=== PATIENT | female | born 1960 | race Caucasian/White ===

== ENCOUNTER 2019-01-03 18:59 | Inpatient (IN) | payer BC, OTHER ==
[~2019-01-03 18:59] MED LIST: ISOVUE-370 76%-LOCM 1 ML ONE
--- NOTE | 2019-01-03 21:23 | CT ---
CTA Angio Chest W WO Con History: Dyspnea Comparison: None. Findings: There is complete opacification of the left hemithorax lung parenchyma which is collapsed d ue to the large left effusion. There is rightward mediastinal shift due to large effusion. Left mastectomy changes and right mastectomy changes. Severe thickening of the left hemithorax skin. There is an area of fat necrosis of left axilla. Surgical clips left axilla. There is atrophy of the left latissimus musculature. Abnormal AP window lymph node measures 1.4 cm in size. The sternum and manubrium are intact. There is a cavitation in the right middle lobe containing a central calcification. Impression: 1. Very large left pleural effusion causing complete left lung collapse. 2. Evidence of bilateral mastectomy changes with left hemithorax skin thickening likely sequela of in flammatory breast cancer. 3. Mild rightward mediastinal shift due to the left hemithorax effusion. 4. Abnormal AP window lymph nodes concerning for metastatic disease.
[2019-01-04] MEDS ORDERED: Morphine 2 MG/ML SYRINGE SLOW IVP PRN (00:28)
[2019-01-04] MEDS ORDERED: Morphine 4 MG/ML VIAL SLOW IVP PRN (00:29)
[2019-01-04] MEDS ORDERED: Ondansetron PF 4 MG/2 ML Vial IVP PRN (00:29)
[2019-01-04] MEDS ORDERED: Sodium Chloride 0.9% 1,000 ML IV SCH (00:30)
[2019-01-04 01:00] VITALS: BP 161/101
[2019-01-04] MEDS: Acetaminophen 325 MG TAB PO PRN ×2 (01:41→08:40)
[2019-01-04 03:04] VITALS: BMI 40.7
--- NOTE | 2019-01-04 05:11 | HP ---
PRIMARY CARE DOCTOR: CODE STATUS: Full code. TIME OF EVALUATION: 11:20 p.m. CHIEF COMPLAINT: Shortness of breath. HISTORY OF PRESENT ILLNESS: This is a 58-year-old female patient with past medical history of breast cancer. She was diagnosed in May. The patient has gone through chemo, surgery, and radiation. Last radiation was today. The patient came to the hospital after having severe gradually worsening shortness of breath and generalized weakness. The symptoms have been present for the past week and has got to the point that her shortness of breath got very severe with no clear triggers. No alleviating factors. The patient is unable to do her activities of daily living due to symptoms. REVIEW OF SYSTEMS: CONSTITUTIONAL: No fever, chills, or generalized weakness. RESPIRATORY: The patient has cough. No sputum production. The patient has shortness of breath. CARDIOVASCULAR: No chest pain or palpitation. GASTROINTESTINAL: No nausea, vomiting, diarrhea, or abdominal pain. COMMERCIAL SINGER: No dizziness, headache, or feeling lightheaded. GENITOURINARY: No burning on urination. EXTREMITIES: No leg swelling. All other systems were reviewed and negative except for the findings mentioned above. PAST MEDICAL HISTORY: Positive for breast cancer and hypertension. The patient is currently on chemo and radiation. PAST SURGICAL HISTORY: Knee surgery, radical mastectomy, uterine ablation, and MediPort right chest. PSYCHIATRIC HISTORY: No previous psych history. FAMILY HISTORY: Reviewed and non contributory to current presentation. SOCIAL HISTORY: The patient drinks socially. No drug use. No smoking history. KNOWN ALLERGIES: Penicillin, sulfa, and Zithromax. REPORTED MEDICATIONS: . PHYSICAL EXAMINATION: VITAL SIGNS: On presentation; blood pressure 158/99 with heart rate 99, respiratory rate was 20, temperature 98.7, pain was 1/10, and oxygen saturation was 93% on room air. GENERAL APPEARANCE: The patient is alert and oriented. HEENT: Eyes, normal conjunctiva. ENT, moist oral mucosa. Anicteric. No JVD. RESPIRATORY: Bilateral air entry. The patient has left-sided decreased sounds. No rales. No wheezes. Symmetric expansion. CARDIOVASCULAR: Normal rate. Regular rhythm. No murmurs. No gallop. No edema. ABDOMEN: Soft. Normal bowel sounds. MUSCULOSKELETAL: Baseline range of motion and strength. SKIN: Warm and intact. No pallor. No rash. No redness. Capillary refill seems to be intact. NEURO: No evidence of any new focal weakness. Cranial nerves seems to be intact. PSYCH: The patient is in good mood. No anxiety. Optimal judgment. IMAGING STUDIES: Chest CTA was done. The patient has very large pleural effusion causing complete left lung collapse, areas of bilateral mastectomy, changes with left hemithorax thickening, likely sequela of inflammatory breast cancer, mild rightward mediastinal shift due to the left hemithorax effusion. Normal AP window, lymph nodes concerning for metastatic disease. LABORATORY DATA: Reviewed. The patient has white count that is difficult to see, could be 0.4 or 9.4, the copy is not good. The hemoglobin is 13.2. There is no anemia. PT/INR were good. Sodium 132, potassium 3.6, chloride 100, carbon dioxide 22, anion gap 10, glucose 105, BUN 12, creatinine 0.6, GFR 96, calcium 9.2, CK 37, and troponin was negative. ASSESSMENT AND PLAN: The patient will be placed in the hospital with following medical problems: 1. Large left-sided pleural effusion with total lung collapse on the left side. The right side seems to be compensating. The patient is little bit hypoxic but is resolving on 2 L nasal cannula. Otherwise, the patient is stable. Consulted Dr. Arias. 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 The patient will need a therapeutic tap. We will follow with Dr. Arias's recommendations. 2. Acute hypoxic respiratory failure. The patient came with difficulty sustaining saturation above 90. The patient is in nasal cannula with underlying condition. 3. History of breast cancer that is metastatic and likely causing the pleural effusion. The patient will need to be followed up as outpatient once inpatient treatment is done. 4. Deep venous thrombosis prophylaxis. 5. Uncontrolled hypertension, systolic blood pressure 150, diastolic 99. Reconcile home medications, adjust treatment as needed. Job ID: [id number] MTDD
[2019-01-04 12:09] LABS: Pleural Fluid, Protein 3.5 g/dL
[2019-01-04 13:16] LABS: BF Color Yellow; Body Fluid Source Thoracentesis Fluid; Clarity Hazy (Clear)
[2019-01-04 13:17] LABS: Tube # EDTA; WBC/NonHematic-Auto 314 /cumm
[2019-01-04 13:19] LABS: BF RBC Count - Manual 3900 /cumm
[2019-01-04 13:29] LABS: BF Segmented Neutrophils 13 %; Cell Count Non Hematic 58 %; Lymphocytes 29 %
[2019-01-04 15:25] VITALS: TEMP 97.2
--- NOTE | 2019-01-04 15:49 | CON ---
DATE OF CONSULTATION: 01/04/2019 SERVICE: Pulmonary Medicine. REASON FOR CONSULT: Pleural effusion. HISTORY OF PRESENT ILLNESS: The patient is a very pleasant 58-year-old white female with past medical history significant for breast cancer. She was in her usual state of health until 10 days ago when she started having increasing shortness of breath. She got to the point where she had dyspnea with exertion, and even dyspnea at rest. She presented to the emergency department, where there was a large pleural effusion present. There was a CTA that was done. There was no endobronchial disease identified. That being said, she had had complete atelectasis of the left lung field. I was consulted for investigation. PAST MEDICAL HISTORY: 1. Breast cancer. 2. Hypertension. PAST SURGICAL HISTORY: 1. Left-sided radical mastectomy. 2. Right-sided mastectomy. 3. Port catheter placement. 4. Uterine ablation. 5. Knee surgery. SOCIAL HISTORY: She has no exposure to tobacco, alcohol, or illicit drugs. She has no exposure to chemicals, dust, asbestos, or tuberculosis. FAMILY HISTORY: Noncontributory. ALLERGIES: PENICILLIN, SULFA, AND ZITHROMAX. MEDICATIONS: List of her inpatient medications was reviewed. No specific updates were made at this time. REVIEW OF SYSTEMS: General; head, ears, eyes, nose, and throat; cardiovascular; respiratory; GI; ; musculoskeletal; neurologic; and skin is negative except as mentioned in the HPI. PHYSICAL EXAMINATION: VITAL SIGNS: Afebrile, pulse 82, blood pressure 128/92, respirations 13, and saturation 97% on 2L nasal cannula. GENERAL: The patient is awake and alert, in no apparent distress. LUNGS: Very good air entry on the right. There is no prolonged expiratory phase or wheezing. There is no air entry on the left. HEART: Normal rate, regular. ABDOMEN: Soft, nontender, and nondistended. Bowel sounds are positive. MUSCULOSKELETAL: No cyanosis or clubbing. There is trace pitting in bilateral lower extremities. NEUROLOGIC: Grossly nonfocal. IMAGING STUDIES: CT of the chest demonstrates no evidence of a pulmonary embolism. There is a very large left-sided pleural effusion with complete atelectasis of the upper and lower lobes. There is no evidence of endobronchial disease in left mainstem bronchus. In fact, I can clearly delineate the left upper lobe and left lower lobe bronchus. There is a cavitary lesion in the right middle lobe. No pulmonary embolism is present. LABORATORY DATA: CBC is essentially unremarkable. There is no significant electrolyte abnormalities and her creatinine is 0.6. CK is low. Troponin is negative. ASSESSMENT: 1. Breast cancer, metastatic. 2. Left-sided pleural effusion, large. 3. Acute hypoxic respiratory failure. DISCUSSION AND PLAN: We will move forward with a thoracentesis for diagnostic and therapeutic purposes. The patient's oxygen can be weaned away. If she tolerates this well, she can be considered for transition home today. If she remains on oxygen, we may need to keep her in the hospital to set this up in the outpatient setting. Pulmonary/Critical Care will continue to follow along. If she is discharged from the hospital, I will see her back on Sunday or of next week to review the cytology and other laboratories. If this is a malignant effusion, she will be a good candidate for a PleurX catheter. 70 minutes have been devoted to this patient in various activities. I personally reviewed all imaging studies and laboratory data noted within this document. For fifty percent of this time, I was interacting with the patient at the bedside or coordinating care with the care team. For the remainder of the time I was immediately available to the patient in the hospital unit. Job ID: [id number] MTDD
--- NOTE | 2019-01-04 22:03 | OP ---
DATE OF PROCEDURE: 01/04/2019 SERVICE: Pulmonary Medicine. PROCEDURE PERFORMED: Left-sided thoracentesis with ultrasound guidance. CONSENT: Risks and benefits of the procedure were explained to the patient at bedside. All questions were answered and alternative options explained. MEDICATIONS USED: Lidocaine 1% without epinephrine, total quantity 10 mL. PREOPERATIVE DIAGNOSES: 1. Acute hypoxic respiratory failure. 2. Pleural effusion. POSTPROCEDURE DIAGNOSES: 1. Acute hypoxic respiratory failure. 2. Pleural effusion. DESCRIPTION OF PROCEDURE: A time-out was performed by the procedure team and patient. The patient was positively identified using name and date of . The procedure site was marked. Vital sign monitoring was accomplished by noninvasive hemodynamic monitoring, pulse oximetry, and telemetry. In the seated position, left posterior hemothorax was examined using ultrasound probe. The diaphragm and pleural fluid were easily identified. The skin was prepped and draped in sterile fashion and anesthetized with 1% lidocaine without epinephrine. A finder needle was inserted in the pleural space with return of cloudy rod pleural fluid. A pleural drainage catheter was inserted in the same location, and a total quantity of 1800 mL of the pleural fluid was withdrawn by syringe pump technique. A sample was sent for analysis. Evacuation was terminated because the patient had a heaviness in the chest, and an odd sensation in the neck. The heaviness in the chest immediately resolved when I stopped flowing fluid. The odd sensation in the neck/throat persisted temporarily. At the end of the procedure, estimated pleural pressures, measured by manometry, was -15 cm of pleural fluid. The intact catheter was withdrawn on exhalation and a sterile dressing was applied. The patient had stable vitals throughout the procedure. Postprocedure ultrasound demonstrated that the patient likely still had 1.5 L in her chest. ESTIMATED BLOOD LOSS: None. COMPLICATIONS: None. Job ID: [id number]
--- NOTE | 2019-01-08 08:33 | PQF ---
[employer] Crystal Reports Winform ViewerKEELY COLE PRASANNA CARRILLO [id number] [facility]- B03 [id number] CLINICAL DOCUMENTATION CLARIFICATION FORM: POST DISCHARGE Addendum to original discharge summary date: ____ Late entry note date: __ DATE: 01/08/2019 ATTN: JERONIMO DECKER Please exercise your independent, professional judgment in responding to the clarification form. Clinical indicators are provided on the bottom of this form for your review ___ Final Diagnosis on the Pathology report: ___ Progress Notes indicate: Clarification of Pathology report: Please check appropriate box(s): [ ] Agree w the pathology finding of: [ ] Other explanation of pathology findings (please specify) [ ] Other diagnosis [ ] Unable to determine For continuity of documentation, please document condition throughout progress notes and discharge summary. Thank You. CLINICAL INDICATORS - SIGNS/ SYMPTOMS / LABS Pleural fluid-Positive for malignancy, consistent with adenocarcinoma-PTH report 01/07 Lyndon Rueda MD Pleural effusion-OP report 01/04 Juana Khan MD Breast cancer, metastatic. 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 Crystal Reports Winform Viewer Large left-sided pleural effusion -Consultation, 01/04 Juana Khan MD TREATMENTS Left-sided thoracentesis with Ultrasound guidance-OP report, 01/04 Juana Khan MD (This form is maintained as a part of the permanent medical record) 2014 [employer]. All Rights Reserved Karen Mason [not provided] [not provided] MTDD
== END 2019-01-04 15:36 | disposition home or self-care (01) | DRG 597 ==
LOC: ERS 18:59 → IMCU/EMU 21:39
PROVIDERS: ADMIT Hospitalist; ATTEND Hospitalist
PROC: 0W9B3ZZ Drainage of Left Pleural Cavity, Percutaneous Approach (ICD-10-PCS; principal; 2019-01-04)
PROC: BB4BZZZ Ultrasonography of Pleura (ICD-10-PCS; 2019-01-04)
DX: C50.919 Malignant neoplasm of unspecified site of unspecified female breast (principal); J96.01 Acute respiratory failure with hypoxia; J91.0 Malignant pleural effusion; I10 Essential (primary) hypertension; Z90.13 Acquired absence of bilateral breasts and nipples; Z88.1 Allergy status to other antibiotic agents; Z88.0 Allergy status to penicillin; Z88.2 Allergy status to sulfonamides
CPT/HCPCS: 71275; 82150; 82945; 83615; 83986; 84157; 84478; 85060; 87070; 87116; 87205; 87206; 88112; 88305; 89051; Q9966

== ENCOUNTER 2019-01-09 09:45 | Outpatient (CLI) | payer OTHER ==
--- NOTE | 2019-01-09 09:58 | RAD ---
EXAM: Chest 2 views: HISTORY: Dyspnea and pleural effusion. Cancer patient COMPARISON: CTA chest 01/03/2019 FINDINGS: There is a normal-sized cardiomediastinal silhouette. A right IJ Mediport is seen with its tip in th e superior vena cava. There is complete opacification of the left thorax which likely represents a combination of a large pleural effusion and adjacent atelectasis of the left lung. The bones are unr emarkable. IMPRESSION: Left hemithoracic opacification
== END 2019-01-09 09:46 | disposition home or self-care (01) ==
LOC: RAD 09:45
PROVIDERS: ATTEND Internal Medicine
DX: R06.00 Dyspnea, unspecified (principal); R91.8 Other nonspecific abnormal finding of lung field
CPT/HCPCS: 71046

== ENCOUNTER 2019-01-10 07:47 | Day surgery (SDC) | payer OTHER ==
[2019-01-09 17:16] VITALS: BMI 40.3
[2019-01-10] MEDS ORDERED: Lidocaine 1% (PF) 30 ML VIAL ONE (08:56)
[2019-01-10 08:59] LABS: Hemoglobin 12.9 g/dL (12.0-16.0); Mean Corpuscular HGB CONC 31.9 g/dL (32.0-36.0); Mean Corpuscular Hemoglobin 26.8 pg (27.0-31.0); Mean Corpuscular Volume 84.2 fL (78.0-98.0); Mean Platelet Volume 7.3 fL (7.4-10.4); Platelet Count 364 thou/uL (130-400); RBC Distribution Width 15.3 % (11.5-14.5); White Blood Cell (WBC) Count 11.4 thou/uL (4.8-10.8)
[2019-01-10] MEDS ORDERED: Levofloxacin 500 mg/D5W 100 ml Premix Bag ONE (09:00)
[2019-01-10 09:16] LABS: Anion Gap 17 mmol/L (10-20); BUN (Urea Nitrogen) 10 mg/dL (9.8-20.1); Calc. Creatinine Clearance 176 mL/min (70-130); Calcium 9.2 mg/dL (7.8-10.44); Carbon Dioxide 25 mmol/L (22-29); Chloride 101 mmol/L (98-107); Estimated GFR-MDRD Greater than 90; Glucose 134 mg/dL (70-105); Potassium 4.1 mmol/L (3.5-5.1); Sodium 139 mmol/L (136-145)
[2019-01-10] MEDS ORDERED: Midazolam HCl 2 mg/2 ml Vial ONE (09:29)
[2019-01-10] MEDS ORDERED: Fentanyl 100 MCG/2 ML VIAL ONE (09:29)
[2019-01-10] MEDS ORDERED: Bupivacaine/Epinephrine 0.25% 30 ML VIAL ONE (09:46)
--- NOTE | 2019-01-10 10:41 | RAD ---
SINGLE VIEW CHEST: Date: 01/10/19 COMPARISON: 01/09/19. HISTORY: PleurX catheter placement. FINDINGS: Single view of chest shows complete opacification of the left thorax, except for a small area of air space opacity in the mid portion of the thorax. A catheter is seen in this location, which likely rep resents the patient's PleurX catheter. No shift of mediastinum is seen. There is a MediPort unchanged in position. IMPRESSION: Status post chest tube placement without evidence of complication. POS: CET
[2019-01-10] MEDS ORDERED: Sodium Chloride 0.9% 10 ML ONE (11:01)
--- NOTE | 2019-01-10 12:14 | OP ---
DATE OF PROCEDURE: 01/10/2019 PREOPERATIVE DIAGNOSIS: Malignant left pleural effusion. POSTOPERATIVE DIAGNOSIS: Malignant left pleural effusion. PROCEDURE PERFORMED: Left PleurX catheter. ANESTHESIA: Local with IV sedation. DESCRIPTION OF PROCEDURE: After the patient had been placed in the slight right lateral decubitus position, she was prepped and draped and received antibiotics. Lidocaine was used to infiltrate along the mid to posterior axillary line inferiorly lower breast. Unfortunately, I was unable to palpate her ribs due to her size and a needle was then placed with the catheter and rib was encountered with initial pass and it was then repositioned and passed slightly superiorly, trying to stay on the superior surface of that rib. Old bloody fluid was immediately obtained and a wire was then used to pass through this catheter. The catheter was then removed. Exit site for the catheter was then chosen. Incision made after lidocaine and Marcaine infiltration, and the catheter was then brought through the tunnel and felt cuff immediately adjacent to the exit site. Peel-away sheath was then introduced and the catheter was placed, ensuring it had a nice gentle curve. 3 L of bloody fluid was then removed, plus about a 100 that had spilled during placement of the catheter. Following this, skin was closed over the entry site of the catheter and then dressings were applied. The patient tolerated the procedure well. Job ID: [id number]
== END 2019-01-10 11:20 | disposition home or self-care (01) ==
LOC: SDC 07:47
PROVIDERS: ATTEND Thoracic Surgery (Cardiothoracic Vascular Surgery)
PROC: 0B9P30Z Drainage of Left Pleura with Drainage Device, Percutaneous Approach (ICD-10-PCS; principal; 2019-01-10)
DX: C50.919 Malignant neoplasm of unspecified site of unspecified female breast (principal); J91.0 Malignant pleural effusion; I10 Essential (primary) hypertension; Z88.0 Allergy status to penicillin; Z88.1 Allergy status to other antibiotic agents; Z88.2 Allergy status to sulfonamides; Z91.048 Other nonmedicinal substance allergy status
CPT/HCPCS: 36415; 71045; 80048; 85027; C1729; J1642; J1956; J2001; J2250; J3010

== ENCOUNTER 2019-01-31 08:38 | Outpatient (CLI) | payer OTHER ==
--- NOTE | 2019-01-31 11:11 | PET ---
Exam: PET CT skull to mid thigh COMPARISON: CTA thorax 01/04/2019 is referenced HISTORY: Malignant neoplasm of lower outer quadrant of left female breast; carcinoma central portion of left female breast TECHNIQUE: A PET/CT was performed from the skull to the mid thigh after administration of 12.5 millic uries of F-18 FDG. Evaluation was performed on a [employer] workstation. FINDINGS: NECK: There is increased metabolic activity at the left base of neck, with SUV measuring borderline a t 2.5, and correlating with CT imaging, this location does reveal multiple borderline size lymph nodes. CHEST: There is extensive pleural and parenchymal disease of the left hemithorax with an indwelling l eft pleural catheter. There is hypermetabolic activity, of the left medial hemithorax, localizing to pulmonary parenchymal disease, with SUV maximum of approximately 2.7, and in addition there are pr ominent prevascular lymph nodes reveal hypermetabolic activity of approximately 2.9. There is multifocal increased metabolic activity involving soft tissue and musculature of the bilateral chest wall both anteriorly and posteriorly, with prominent soft tissue edema traversing the anterior chest, left greater than right, and along the left lateral and posterior chest wall. There is focal h ypermetabolic activity of this region, the most pronounced of which localizes to the lateral confines of the left pectoralis musculature with SUV of approximately 4.5, within the presternal musc ulature, SUV approximately 3.5, and within the right breast soft tissues, SUV approximately 3.6. Postoperative ovoid mixed density collection is seen at the left anterolateral chest and is not intri nsically hypermetabolic. ABDOMEN/PELVIS: Scattered soft tissue edema of the abdomen and pelvis. No hypermetabolic lesions. SKELETON: No areas of hypermetabolic activity IMPRESSION: Multifocal hypermetabolic activity of the neck and chest, as above, predominance of which does appear to reflect inflammatory process, given diffuse distribution and associated edema. There are hypermetabolic lymph nodes of the left neck and left chest that may reflect reactive adenop athy, although the possibility of underlying malignancy is not excluded. Extensive pleural and parenchymal disease of the left chest. Recommend continued imaging follow-up for ongoing assessment.
== END 2019-01-31 08:39 | disposition home or self-care (01) ==
LOC: PET 08:38
DX: C50.512 Malignant neoplasm of lower-outer quadrant of left female breast (principal); C50.112 Malignant neoplasm of central portion of left female breast; J98.4 Other disorders of lung
CPT/HCPCS: 78815; A9552

== ENCOUNTER 2019-03-19 13:38 | Outpatient (CLI) | payer OTHER ==
--- NOTE | 2019-03-19 13:53 | RAD ---
EXAM: Chest 2 views: HISTORY: Malignant pleural effusion COMPARISON: 01/09/2019 FINDINGS: There is a normal-sized cardiomediastinal silhouette. The Mediport is unchanged in position. There i s stable complete opacification of the left thorax. The bones are unremarkable. IMPRESSION: Stable left thoracic opacification
== END 2019-03-19 13:39 | disposition home or self-care (01) ==
LOC: RAD 13:38
PROVIDERS: ATTEND Thoracic Surgery (Cardiothoracic Vascular Surgery)
DX: J91.0 Malignant pleural effusion (principal)
CPT/HCPCS: 71046

== ENCOUNTER 2019-03-24 17:04 | Inpatient (IN) | payer OTHER ==
[2019-03-24 17:42] LABS: Hemoglobin 9.9 g/dL (12.0-16.0); Mean Corpuscular HGB CONC 31.6 g/dL (32.0-36.0); Mean Corpuscular Hemoglobin 25.3 pg (27.0-31.0); Mean Corpuscular Volume 80.1 fL (78.0-98.0); Mean Platelet Volume 7.2 fL (7.4-10.4); Platelet Count 631 thou/uL (130-400); RBC Distribution Width 18.6 % (11.5-14.5); Red Blood Cell (RBC) Count 3.93 mill/uL (4.20-5.40); White Blood Cell (WBC) Count 17.3 thou/uL (4.8-10.8)
--- NOTE | 2019-03-24 17:46 | RAD ---
RADIOGRAPH CHEST 1 VIEW: DATE: 03/24/2019 TIME: 5:38 PM HISTORY: 59-year-old female with chest pain and dyspnea COMPARISON: 03/19/2019 FINDINGS: Almost total opacification of the left hemithorax. Pleural catheter distal portion looped over the le ft mid lung zone. No pneumothorax. No midline shift of the trachea or heart. Right IJ implantable vascular access port with distal tip at SVC. Right lung is relatively clear. Right lateral costophren ic angle is sharp. No major interval change. IMPRESSION: 1. Large left pleural effusion with almost total atelectasis/ consolidation of the underlying left racquel ng. 2. No interval change.
[2019-03-24 17:59] LABS: Anisocytosis SLIGHT = 6-15 cells (100X) (0-5/hpf); Band 10 % (5-11); Hypochromia SLIGHT = 6-15 cells (100X) (0-5/hpf); Lymphocytes 4 % (21-51); MDiff Complete? YES; Metamyelocyte 2 % (0-0); Myelocyte 1 % (0-0); Neutrophil 83 % (42-75); Ovalocytes SLIGHT = 2-5 cells (100X) (0-1/hpf); Platelet Morphology Comment Appears Increased; Polychromasia SLIGHT = 2-3 cells (100X) (0-2/hpf); Toxic Granulation SLIGHT
[2019-03-24 18:13] LABS: ALT (SGPT) 20 U/L (8-55); AST (SGOT) 35 U/L (5-34); Alkaline Phosphatase 171 U/L (40-150); Anion Gap 18 mmol/L (10-20); BUN (Urea Nitrogen) 24 mg/dL (9.8-20.1); Bilirubin, Total 0.5 mg/dL (0.2-1.2); CK (CPK) 53 U/L (29-168); Calc. Creatinine Clearance 0 mL/min (70-130); Calcium 8.8 mg/dL (7.8-10.44); Carbon Dioxide 25 mmol/L (22-29); Chloride 99 mmol/L (98-107); Estimated GFR-MDRD 79; Globulin 3.5 g/dL (2.4-3.5); Glucose 133 mg/dL (70-105); Potassium 3.9 mmol/L (3.5-5.1); Protein, Total 6.5 g/dL (6.0-8.3); Sodium 138 mmol/L (136-145)
[2019-03-24] MEDS ORDERED: Lidocaine 1% w/Epinephrine 1:100K 20 ML VIAL ONE (18:49)
[2019-03-24] MEDS ORDERED: Cefepime 2 GM VIAL ONE (19:03)
--- NOTE | 2019-03-24 19:07 | CT ---
CT ANGIOGRAM THORAX WITH CONTRAST: (CTA pulmonary angiogram) DATE: 03/24/2019 HISTORY: 59-year-old female with malignant left pleural effusion from breast cancer presents with leukocytosis , dyspnea, and chest pain. Rule out PE. COMPARISON: The nondiagnostic attenuation correction CT for the PET scan of 01/31/2019 TECHNIQUE: IV injection of iodinated contrast. Scan acquisition timing attempted to coincide with iodinated contrast bolus reaching maximal density in pulmonary arteries. 3-D MIP reconstructions. FINDINGS: In addition to the soft tissue edema throughout the subcutaneous fat around the anterior chest wall, which has worsened since the prior study, there is a new finding of a very large number of soft tissue density masses abutting the right pectoralis musculature, and the right breast, and to lesser degree left chest wall, occupying the subcutaneous fat. The large left pleural effusion has become larger. Whereas previously there was some aerated left upper lobe in addition to the severely atelect atic left lower lobe, there is currently only a tiny amount of aerated lung on the left anteriorly. The rest of it is severely collapsed. There is no pneumothorax. The left pulmonary artery and its bra nches are distorted and displaced by the collapse of the left lung and mass effect caused by the large left pleural effusion. A catheter enters the left posterior rib cage, and travels anteriorly wi thin the pleural effusion, with distal tip at the left anterior pleural surface. Again noted is the air cyst containing a calcification located in the anterior segment of the right upper lobe. This pro bably has not significantly changed. Otherwise, the rest of the right lung is essentially clear. No right-sided pleural effusion. No pulmonary thromboembolism is identified. No thoracic aortic aneurysm or dissection. No cardiomegaly. The trachea is displaced to the right. IMPRESSION: 1. Interval increase in volume of very large left pleural effusion. 2. Almost total atelectasis collapse of the entire left lung. 3. The above 2 findings result in distortion and displacement of left pulmonary artery and its branch es, and tracheal displacement to the right. 4. No evidence of pulmonary thromboembolism. 5. Left pleural catheter. 6. Interval development of multiple soft tissue density masses in the bilateral anterior chest wall, either representing metastatic disease or multifocal infections.
[2019-03-24 20:15] LABS: Bacteria/HPF None Seen HPF (None Seen); Bilirubin Negative (Negative); Blood, Urine Negative (Negative); Clarity Clear (Clear); Glucose, Urine (Dipstick) Normal (Negative); Leukocyte Negative Leu/uL (Negative); Nitrite Negative (Negative); Protein, Urine (Dipstick) 30 mg/dL (Neg-Trace); RBC/HPF 0-3 HPF (0-3); Squamous Epithelial 0-3 HPF (0-3); Urobilinogen Normal mg/dL (Less than 2); WBC/HPF 0-3 HPF (0-3)
[2019-03-24] MEDS ORDERED: Ondansetron PF 4 MG/2 ML Vial IVP PRN (21:04)
[2019-03-24] MEDS ORDERED: Acetaminophen 650 MG Suppository PR PRN (21:04)
[2019-03-24] MEDS ORDERED: Acetaminophen 325 MG TAB PO PRN (21:04)
[2019-03-24] MEDS ORDERED: Ondansetron ODT 4 MG TAB PO PRN (21:04)
[2019-03-24] MEDS ORDERED: traMADol HCl 50 MG TAB PO PRN (21:06)
[2019-03-24] MEDS ORDERED: Sodium Chloride 0.9% 1,000 ML IV SCH (21:32)
[2019-03-24 22:17] VITALS: BMI 38.7
[2019-03-24] MEDS: traMADol HCl 50 MG TAB PO PRN (23:50)
[2019-03-25 05:03] LABS: #Lymphocytes 0.8 thou/uL (1.20-3.40); #Monocytes 0.7 thou/uL (0.11-0.59); #Neutrophils 13.5 thou/uL (1.40-6.50); %Basophils 0.1 % (0.0-1.0); %Eosinophils 0.3 % (0.0-10.0); %Lymphocytes 5.1 % (21.0-51.0); %Monocytes 4.3 % (0.0-10.0); %Neutrophils 90.3 % (42.0-75.0); Hemoglobin 9.3 g/dL (12.0-16.0); Mean Corpuscular HGB CONC 31.3 g/dL (32.0-36.0); Mean Corpuscular Hemoglobin 24.9 pg (27.0-31.0); Mean Corpuscular Volume 79.8 fL (78.0-98.0); Mean Platelet Volume 7.1 fL (7.4-10.4); Platelet Count 571 thou/uL (130-400); RBC Distribution Width 18.6 % (11.5-14.5); Red Blood Cell (RBC) Count 3.73 mill/uL (4.20-5.40)
[2019-03-25] MEDS: Cefepime 1 GM in Sodium Chloride 0.9% 100 ML IVPB SCH ×2 (05:19→18:07)
[2019-03-25 05:25] LABS: Anion Gap 15 mmol/L (10-20); BUN (Urea Nitrogen) 21 mg/dL (9.8-20.1); Calc. Creatinine Clearance 160 mL/min (70-130); Calcium 8.5 mg/dL (7.8-10.44); Carbon Dioxide 25 mmol/L (22-29); Chloride 103 mmol/L (98-107); Estimated GFR-MDRD 86; Glucose 132 mg/dL (70-105); Sodium 139 mmol/L (136-145)
--- NOTE | 2019-03-25 07:31 | HP ---
PRIMARY CARE DOCTOR: Dr. Sujey Guzman. CODE STATUS: Full code. TIME OF EVALUATION: 9:00 pm. CHIEF COMPLAINT: Shortness of breath. HISTORY OF PRESENT ILLNESS: This is a 59-year-old female patient with past medical history of breast cancer, hypertension, currently on chemo, came to the hospital after having shortness of breath. The symptoms started insidiously and has been gradually getting worse with no clear triggers, no alleviating factors. The patient recently has had large left-sided pleural effusion, has been seen by Dr. Arias and Dr. Nye. She had drainage and had a chest tube that had been placed and recently has been removed. The patient reported after it was removed, the patient again has developed the symptoms. This is likely secondary to malignant pleural effusion. We will consult Dr. Arias again for further recommendations and taking into consideration the possibility of pleurodesis to see if any help for our patient at this point. REVIEW OF SYSTEMS: All other systems were reviewed and negative except for the findings mentioned above as noted. The patient also has significant generalized weakness. PAST MEDICAL HISTORY: As mentioned in HPI. PAST SURGICAL HISTORY: Knee surgery, left radical mastectomy, right mastectomy, uterine ablation, port to right chest. PSYCHIATRIC HISTORY: No previous psych history. SOCIAL HISTORY: No alcohol, no drugs, no smoking history. FAMILY HISTORY: Reviewed, noncontributory for current presentation. KNOWN ALLERGIES: Adhesive, azithromycin, penicillin, sulfa, . MEDICATIONS: Tylenol with codeine No.3, atezolizumab, abraxanae, tramadol. PHYSICAL EXAMINATION: VITAL SIGNS: On presentation, blood pressure 122/66, with heart rate 106, respiratory rate was 22, temperature 98.8, pain was 4/10, oxygen saturation was 95% on room air. GENERAL APPEARANCE: The patient is alert, oriented, not in acute distress. HEENT: Eyes, normal conjunctivae. Moist oral mucosa. Anicteric. No JVD. RESPIRATORY: The patient has left side breath sounds. The right side has normal breath sounds. No rales. No wheezing. CARDIOVASCULAR: Normal rate, regular rhythm. No murmurs. No gallop. No edema. ABDOMEN: Soft. Normal bowel sounds. MUSCULOSKELETAL: Baseline range of motion and strength. SKIN: Warm, intact. No pallor. No rash. No redness. Capillary refill seems to be intact. NEUROLOGICAL: No evidence of any new focal weakness. Cranial nerves seem to be intact. PSYCH: The patient is in good mood. No anxiety. Optimal judgment. LABORATORY DATA: EKG was reviewed. The patient has sinus tachycardia at the rate of 109 with sharp ER, low-voltage QRS. CT chest was done and reported by radiologist as follows; interval increase in volume of very large left-sided pleural effusion, almost total atelectasis collapse of the entire left lung. The above 2 findings resulted in distortion and displacement of the left pulmonary artery and its branches and tracheal displacement to the right. No evidence of pulmonary thromboembolism. Left pleural catheter. Interval development of multiple soft tissue densities, masses, and bilateral anterior chest wall either representing metastatic disease or multifocal infections. ASSESSMENT AND PLAN: The patient will be placed in the hospital with following medical problems: 1. Metastatic breast cancer. The patient has been following with her oncology. This is something like can be followed as outpatient. Currently receiving chemo. 2. Large left-sided pleural effusion, that is recurrent. This is malignant effusion. The patient has received treatment and workup recently with Dr. Arias and Dr. Nye. The patient had a catheter, and drainage was scant enough for Dr. Nye to remove the catheter, thus symptoms have recurred. We will consult Dr. Arias for any further recommendation regarding if this patient would benefit from pleurodesis and if she could be appropriate candidate for the procedure or any other further plan that pulmonary could help our patient with. 3. Controlled hypertension. Reconcile home medications, adjust treatment as needed. As of now, it is controlled, chronic. 4. Deep venous thrombosis prophylaxis. Job ID: [id number]
[2019-03-25] MEDS: Vancomycin HCl 1.75 GM in Sodium Chloride 0.9% 500 ML IVPB SCH ×2 (08:24→20:30)
[2019-03-25 16:47] LABS: Fluid, pH - Pleural Fld Less than 7.00 (7.60 - 7.66)
--- NOTE | 2019-03-25 16:57 | PDOC.HOSPP ---
- Subjective Subjective: Feels like she is breathing a little better since arrival. - Objective Vital Signs & Weight: Vital Signs (12 hours) Temp Pulse Resp BP Pulse Ox 03/25/19 12:15 97.7 F 97 18 123/93 H 94 L 03/25/19 08:30 97.8 F 91 18 117/84 95 03/25/19 08:00 95 Weight Admit Weight 255 lb Weight 255 lb I&O: 03/24/19 03/25/19 03/26/19 06:59 06:59 06:59 Intake Total 1680 Balance 1680 Result Diagrams: 03/25/19 04:56 03/25/19 04:56 Hospitalist ROS - Medication Medications: Active Medications Generic Name Dose Route Start Last Admin Trade Name Freq PRN Reason Stop Dose Admin Cefepime HCl 1 gm/ Sodium 100 mls @ 200 mls/hr 03/25/19 06:00 03/25/19 05:19 Chloride IVPB 100 mls 0600,1800 DHARA Administration Vancomycin HCl 1.75 gm/ Sodium 500 mls @ 250 mls/hr 03/25/19 08:00 03/25/19 08:24 Chloride IVPB 500 mls 0800,2000 DHARA Administration Tramadol HCl 75 mg 03/24/19 21:15 03/24/19 23:50 Ultram PO 75 mg DAILYPRN PRN Administration Moderate Pain (4-6) - Exam General Appearance: NAD, awake alert Heart: RRR, no murmur, no gallops, no rubs, normal peripheral pulses Respiratory - other findings: Decreased BS on left. Gastrointestinal: soft, non-tender, non-distended, normal bowel sounds, no palpable masses, no hepatomegaly Extremeties - other findings: LUE lymphedema that is severe. Skin - other findings: Rad pierce on left chest with some ulceration. Infectious pocket lat. chest Musculoskeletal: normal tone Psychiatric: normal affect, normal behavior, A&O x 3 Hosp A/P (1) Breast cancer Status: Acute (2) Pleural effusion Code(s): J90 - PLEURAL EFFUSION, NOT ELSEWHERE CLASSIFIED Status: Acute (3) Abscess or cellulitis of chest wall Code(s): XTO8847 - Status: Acute Plan: PleurX removed, but tract appears to be infected. (4) Staph aureus infection Code(s): A49.01 - METHICILLIN SUSCEP STAPH INFECTION, UNSP SITE Status: Acute - Plan Discussed with Dr. Nye. Consult with Dr. Arias pending. Will likely need thoracentesis. Concern for infected effusion. Dr. Nye does not want to enter the chest if infected given the nature of the infection, the radiation pierce and the cancer. The patient initially had very high output from the drain and closure would be very challenging. Continue Vanc for staph.
[2019-03-25 17:36] LABS: RBC Count-Automated (BF) 23528 /cumm; WBC/Nucleated-Auto (BF) 42085 uL
[2019-03-25 18:03] LABS: BF Color Red; Body Fluid Source Pleural Fluid; Clarity Cloudy/Turbid (Clear)
[2019-03-25 18:04] LABS: Tube # EDTA
[2019-03-25 18:05] LABS: Pleural Fluid, Glucose Less than 20 mg/dL; Pleural Fluid, Protein 4.1 g/dL
[2019-03-25 18:08] LABS: BF Segmented Neutrophils 89 %; Cell Count Non Hematic 11 %
[2019-03-25 18:31] LABS: Pleural Fluid, LDH 5406 U/L (Not Available)
--- NOTE | 2019-03-25 20:18 | CON ---
DATE OF CONSULTATION: REASON FOR CONSULTATION: Breast cancer. HISTORY OF PRESENT ILLNESS: Ms. Noble is a pleasant 59-year-old female with a history of metastatic triple-negative breast cancer, currently on Tecentriq and Abraxane, who came to our hospital after worsening shortness of breath. She has a history of malignant pleural effusion, and she is managed by her auto research engineer, Dr. Arias. She receives all her treatment in [place] with her third cycle given yesterday. She states she did have leukocytosis on labs drawn at the clinic in [place]. She recently completed radiation to her left breast and has skin changes to that area. She has left upper extremity lymphedema. CT scan showed an increase in her large left pleural effusion with almost total atelectasis/collapse of the left lung. She does have a left PleurX catheter in place. Her white count was 17,000 on arrival. PAST MEDICAL HISTORY: 1. Metastatic triple-negative breast cancer. 2. Malignant pleural effusion. 3. Hypertension. PAST SURGICAL HISTORY: Knee surgery, left radical mastectomy, right mastectomy, uterine ablation, MediPort placement, and PleurX catheter placement. ALLERGIES: 1. ADHESIVE. 2. ZITHROMAX. 3. PENICILLIN. 4. SULFA. HOME MEDICATIONS: 1. Tylenol No. 3. 2. Tramadol. FAMILY HISTORY: Noncontributory. SOCIAL HISTORY: Denies alcohol, tobacco, or illicit drug use. Lives close to [place]. REVIEW OF SYSTEMS: A 10-point review of systems is negative except for noted in HPI. PHYSICAL EXAMINATION: VITAL SIGNS: Temperature is 97.7, pulse is 97, respiratory rate 18, BP is 123/97. She is 94% on room air. GENERAL: This is a well-developed, well-nourished female, in no acute distress. HEENT: Normocephalic and atraumatic. NECK: Supple. CV: Regular rate and rhythm. LUNGS: Clear anterior. ABDOMEN: Soft and obese. EXTREMITIES: She has left upper extremity lymphedema. SKIN: She has radiation changes to her left chest. HEMATOLOGIC: No petechiae or purpura. NEUROLOGIC: Nonfocal. PERTINENT LABS AND X-RAYS: Current WBCs are 15, hemoglobin 9.3, hematocrit 29.7, platelet counts are 571,000, 90% neutrophils, 5% lymphocytes. Sodium 139, potassium 4.0, chloride 103, CO2 is 25, BUN is 21, creatinine 0.7. Lactic acid 1.4. Calcium 8.5. Bilirubin 0.5, AST is 35, ALT is 20, alkaline phosphatase is 171. Troponin is negative. BNP is less than 10. Serum total protein 6.5, albumin 3.0, globulin 3.5. ASSESSMENT: 1. Triple-negative breast cancer, status post cycle 3 of Tecentriq and Abraxane. 2. Leukocytosis. 3. Worsening left pleural effusion. 4. Anemia, likely secondary to chemotherapy. 5. Thrombocytosis. DISCUSSION: The patient's leukocytosis and thrombocytosis are likely reactive to her worsening pleural effusion. She was positive for Staphylococcus aureus in her pleural fluid. She is on immunotherapy with Tecentriq and on chemotherapy with Abraxane. I do not anticipate neutropenia with this regimen. We would continue antibiotics and supportive care. Await Pulmonology's input. She should return to her oncologist in [place] for further recommendations regarding her cancer. We will sign off. Thank you for the consult. Job ID: [id number]
[2019-03-25] MEDS: traMADol HCl 50 MG TAB PO PRN (20:28)
[2019-03-26] MEDS: Cefepime 1 GM in Sodium Chloride 0.9% 100 ML IVPB SCH ×2 (05:19→17:47)
[2019-03-26] MEDS: Vancomycin HCl 1.75 GM in Sodium Chloride 0.9% 500 ML IVPB SCH ×2 (08:21→20:12)
[2019-03-26] MEDS: Silver Sulfadiazine 1% Cream 50 GM JAR TOP SCH (08:22)
[2019-03-26 08:50] LABS: #Basophils 0.1 thou/uL (0.0-0.2); #Lymphocytes 0.5 thou/uL (1.20-3.40); #Monocytes 0.2 thou/uL (0.11-0.59); #Neutrophils 10.6 thou/uL (1.40-6.50); %Eosinophils 0.3 % (0.0-10.0); %Lymphocytes 4.1 % (21.0-51.0); %Monocytes 1.3 % (0.0-10.0); %Neutrophils 93.3 % (42.0-75.0); Hemoglobin 9.9 g/dL (12.0-16.0); Mean Corpuscular HGB CONC 31.1 g/dL (32.0-36.0); Mean Corpuscular Hemoglobin 24.9 pg (27.0-31.0); Mean Corpuscular Volume 80.1 fL (78.0-98.0); Mean Platelet Volume 7.3 fL (7.4-10.4); Platelet Count 507 thou/uL (130-400); Red Blood Cell (RBC) Count 3.97 mill/uL (4.20-5.40); White Blood Cell (WBC) Count 11.4 thou/uL (4.8-10.8)
[2019-03-26 09:21] LABS: ALT (SGPT) 20 U/L (8-55); AST (SGOT) 44 U/L (5-34); Albumin 2.8 g/dL (3.5-5.0); Alkaline Phosphatase 151 U/L (40-150); Anion Gap 18 mmol/L (10-20); BUN (Urea Nitrogen) 19 mg/dL (9.8-20.1); Bilirubin, Total 0.3 mg/dL (0.2-1.2); Calc. Creatinine Clearance 184 mL/min (70-130); Calcium 8.6 mg/dL (7.8-10.44); Carbon Dioxide 23 mmol/L (22-29); Chloride 105 mmol/L (98-107); Estimated GFR-MDRD Greater than 90; Glucose 110 mg/dL (70-105); Potassium 3.6 mmol/L (3.5-5.1); Protein, Total 5.8 g/dL (6.0-8.3); Sodium 142 mmol/L (136-145)
--- NOTE | 2019-03-26 09:56 | RAD ---
PORTABLE CHEST: COMPARISON: 03/24/2019 study. HISTORY: Pleural effusion. Right-sided MediPort catheter is again demonstrated. Complete opacification of the left chest is a s table finding. The right lung remains clear of any infiltrates. Surgical clips are seen in the left axilla. IMPRESSION: Stable exam. POS: TPC
--- NOTE | 2019-03-26 11:15 | CON ---
DATE OF CONSULTATION: 03/25/2019 SERVICE: Pulmonary Medicine. REASON FOR CONSULTATION: Pleural effusion. HISTORY OF PRESENT ILLNESS: The patient is a 59-year-old white female, who is known to me. She has a past medical history significant for breast cancer and malignant effusion. Ultimately, she had a PleurX catheter placed. This stopped draining after a period of a couple of weeks. The last time she withdrew any fluid, she only got 35 mL. She returns to clinic with a very large pleural effusion, and fever. She has increasing shortness of breath, and increasing weakness as time has gone by. The patient has very poor functional status at this point, and needs to stay in bed most of the day. PAST MEDICAL HISTORY: 1. Breast cancer, metastatic. 2. Malignant effusion on the left. 3. Hypertension. PAST SURGICAL HISTORY: 1. Knee surgery. 2. Radical mastectomy. 3. PleurX catheter placement with subsequent removal. 4. Uterine ablation. 5. MediPort in the right chest. FAMILY HISTORY: Noncontributory. SOCIAL HISTORY: Negative for alcohol, tobacco, or illicit drug use. She has no exposure to chemicals, dust, asbestos, or tuberculosis. ALLERGIES: PENICILLIN, SULFA, ZITHROMAX. MEDICATIONS: List of her inpatient medications was reviewed. No specific updates were made at this time. REVIEW OF SYSTEMS: General; head, eyes, ears, nose, and throat; cardiovascular, respiratory, GI, , musculoskeletal, neurologic, and skin are negative, except as mentioned in the HPI. PHYSICAL EXAMINATION: VITAL SIGNS: Afebrile currently. Pulse 91, blood pressure 117/84, respirations 18, saturation 95%, currently on room air. GENERAL: The patient is awake and alert, in no apparent distress. LUNGS: Decent air entry on the right. There are some dependent crackles present. No prolonged expiratory phase is present. There is no air entry on the left. Dullness to percussion throughout. HEART: Normal rate. Regular. ABDOMEN: Soft, nontender, nondistended. Bowel sounds are positive. MUSCULOSKELETAL: No cyanosis or clubbing. There is diffuse pitting, which is much more dramatic in the left upper extremity secondary to recent surgery. NEUROLOGIC: Grossly nonfocal. LABORATORY DATA: WBC 17.3, hemoglobin 9.9, platelets 631,000. Neutrophil count is 83% on top of 10% bands. D-dimer 2.12. Creatinine 0.75. Basic metabolic profile, lactic acid. Liver function studies are essentially unremarkable otherwise. BNP and troponin are negative. Lipase is unremarkable. Urinalysis is unremarkable. Previous pleural fluid was a strong exudate, consistent with a malignant effusion. Neutrophil count at that time was only 13% with a normal pH. Chest wall is growing MSSA. IMAGING STUDIES: CT of the chest demonstrates nadine-opacification of the left lung field. No PE is present. ASSESSMENT: 1. Sepsis without end-organ damage. 2. Malignant pleural effusion on the left, status post PleurX catheter placement and subsequent removal. 3. Infected PleurX catheter. 4. Breast cancer, metastatic. DISCUSSION AND PLAN: The PleurX catheter has already been removed. We will need to do a diagnostic thoracentesis to see if the characteristics of this fluid have changed. If they have, additional interventions maybe required. She is a very poor surgical candidate for decortication. Dr. Nye has already suggested that this may not be operatively feasible. As such, if this represents infected space, we will discuss our options with the patient moving forward. 70 minutes have been devoted to this patient in various activities. I personally reviewed all imaging studies and laboratory data noted within this document. For fifty percent of this time, I was interacting with the patient at the bedside or coordinating care with the care team. For the remainder of the time I was immediately available to the patient in the hospital unit. Job ID: [id number] MTDD
--- NOTE | 2019-03-26 11:20 | OP ---
DATE OF PROCEDURE: 03/25/2019 SERVICE: Pulmonary Medicine. PROCEDURE PERFORMED: Left-sided pleural drainage with catheter insertion under ultrasound guidance. CONSENT: Risks and benefits of this procedure were discussed with the patient. All questions were answered and alternative options discussed. STAFF PHYSICIAN: Bill Arias MD MEDICATIONS USED: Lidocaine 1% without epinephrine, 10 mL. PREOPERATIVE DIAGNOSES: 1. Malignant pleural effusion. 2. Sepsis without end-organ damage. POSTOPERATIVE DIAGNOSES: 1. Malignant pleural effusion. 2. Sepsis without end-organ damage. DESCRIPTION OF PROCEDURE: Time-out was performed by the procedure team and the patient. The patient was positively identified using name and date of . The procedure site was marked. Vital sign monitoring was accomplished by noninvasive hemodynamic monitoring, pulse oximetry, and telemetry. In the seated position, the left posterior hemithorax was examined using an ultrasound probe. The diaphragm and pleural fluid were easily identified. The skin was prepped and draped in sterile fashion and anesthetized with 1% lidocaine without epinephrine. A final needle was inserted in the pleural space with return of brown/pink cloudy pleural fluid. A pleural drainage catheter was inserted in the same location. A total quantity of 600 mL of pleural fluid was withdrawn by syringe pump technique. A sample was sent for analysis. Evacuation of the fluid was terminated because the patient started having onset of discomfort in the chest. At this point, our intrapleural pressure was -24 cm of pleural fluid. As such, the intact catheter was removed on exhalation. A sterile dressing was applied. The patient had stable vitals throughout the entire procedure. ESTIMATED BLOOD LOSS: 2 mL. COMPLICATIONS: None. Job ID: [id number]
--- NOTE | 2019-03-26 11:48 | PDOC.MOPN ---
Interval History: Feeling better - Vital Signs Vital Signs: Vital Signs (12 hours) Temp Pulse Resp BP Pulse Ox 03/26/19 07:50 97.5 F L 109 H 20 134/89 94 L Weight Admit Weight 255 lb Weight 255 lb - Physical Exam General: Alert, Oriented x3, No acute distress HEENT: Atraumatic, PERRLA, EOMI, Mucous membr. moist/pink Lungs: Other Cardiovascular: Regular rate, Normal S1, Normal S2, No murmurs, Gallops, Rubs Abdomen: Normal bowel sounds, Soft, No tenderness, No hepatospenomegaly, No masses Extremities: No clubbing, No cyanosis, No edema, Normal pulses, No tenderness/ swelling Skin: No rashes, No breakdown, No significant lesion Neurological: Normal gait, Normal speech, Strength at 5/5 X4 ext, Normal tone, Sensation intact, Cranial nerves 3-12 NL, Reflexes 2+ Psych/Mental Status: Mental status NL, Mood NL - Labs Result Diagrams: 03/26/19 08:36 03/26/19 08:36 Lab results: Laboratory Results - last 24 hr 03/26/19 08:36: WBC 11.4 H, RBC 3.97 L, Hgb 9.9 L, Hct 31.8 L, MCV 80.1, MCH 24.9 L, MCHC 31.1 L, RDW 19.0 H, Plt Count 507 H, MPV 7.3 L, Neutrophils % 93.3 H, Lymphocytes % 4.1 L, Monocytes % 1.3, Eosinophils % 0.3, Basophils % 1.0, Neutrophils # 10.6 H, Lymphocytes # 0.5 L, Monocytes # 0.2, Eosinophils # 0.0, Basophils # 0.1 03/26/19 08:36: Sodium 142, Potassium 3.6, Chloride 105, Carbon Dioxide 23, Anion Gap 18, BUN 19, Creatinine 0.61, Estimated GFR (MDRD) Greater than 90, Glucose 110 H, Calcium 8.6, Total Bilirubin 0.3, AST 44 H, ALT 20, Alkaline Phosphatase 151 H, Serum Total Protein 5.8 L, Albumin 2.8 L, Globulin 3.0, Albumin/Globulin Ratio 0.9 L 03/25/19 17:05: Fluid Source Pleural Fluid, Fluid Tube Number EDTA, Fluid Color Red, Fluid Clarity Cloudy/Turbid H, Fluid WBC 27442, Fluid RBC 80849, Fluid Diff Comment , Fluid Seg Neutrophil % 89, Fluid Diff Path Review , Non- Hematological % 11, Fluid Comment Note: 03/25/19 17:05: Pleural Total Protein 4.1, Pleural LDH 5406, Pleural Glucose Less than 20 03/25/19 16:40: Pleural pH (Resp) Less than 7.00 Status: lab reviewed by me A/P - Problem (1) Metastatic breast carcinoma Current Visit: Yes Code(s): C50.919 - MALIGNANT NEOPLASM OF UNSP SITE OF UNSPECIFIED FEMALE BREAST Status: Acute - Plan Plan: Patient is aware of extent of her disease Currently getting Abraxane/Tecetriq which is her second regimen. This regimen is know to extend OS by 10 months. She just received her 3rd cycle. Generally, restaging after cycle 4. I have contacted Dr. Velazquez but have been unable to get ahold of her. Patient understands her options regarding drainage and treatment of pleural effusion. My sense is that she is not ready to stop treatment for her cancer and she is leaning towards chest tubes. Await further input from primary oncologist. Palliative care consult.
[2019-03-26] MEDS ORDERED: Prevnar 13-Val Conj/PF 0.5 ML SYRINGE IM ONE (13:00)
--- NOTE | 2019-03-26 14:29 | PQF ---
DATE: 03-26-19 ATTN: DR. MARISA PERKINS Please exercise your independent, professional judgment in responding to the clarification form. Clinical indicators are provided on the bottom of this form for your review Please check appropriate box(s) to clarify if the following diagnosis has been ruled in or ruled out: SEPSIS [ ] Ruled in diagnosis [ ] Continue to treat [ ] Resolved [ ] Ruled out diagnosis [ ] Other diagnosis [ ] Unable to determine In addition, please specify: Present on Admission (POA): [ ] Yes [ ] No [ ] Unable to determine For continuity of documentation, please document condition throughout progress notes and discharge summary. Thank You. CLINICAL INDICATORS - SIGNS / SYMPTOMS / LABS ER DX 03-24-19: FEVER IN CHEMO PATIENT, LARGE LEFT PLEURAL EFFUSION, METASTATIC BREAST CANCER, PNEUMONIA CONSULT NOTE BRADING 03-26-19: SEPSIS WITHOUT END-ORGAN DAMAGE, MALIGNANT PLEURAL EFFUSION ON THE LEFT, STATUS POST PLEURX PLACEMENT AND SUBSEQUENT REMOVAL, INFECTED PLEURX CATHETER, METASTATIC BREAST CANCER RISK FACTORS: ER DX 03-24-19: FEVER IN CHEMO PATIENT, LARGE LEFT PLEURAL EFFUSION, METASTATIC BREAST CANCER, PNEUMONIA PN DR. PERKINS 03-25-19: ACUTE STAPH AUREUS INFECTION, CONCERN FOR INFECTED EFFUSION TREATMENTS: ER NOTES 03-24-19: VANCOMYCIN IV, IVF NS, CEFEPIME IV (This form is maintained as a part of the permanent medical record) 2014 [employer] All Rights Reserved PALOMO [email or web address] Office: [phone] FAXTON [email or web address]
--- NOTE | 2019-03-26 17:39 | PRG ---
DATE OF SERVICE: 03/26/2019 SERVICE: Pulmonary Medicine. INTERVAL HISTORY: The patient is doing fine from respiratory standpoint. Breathing comfortably. She has no complaints of chest discomfort, nausea, or vomiting. She is breathing a little bit easier even though we only pulled off a small amount of fluid yesterday. I discussed the characteristics of this fluid. I also suggested that since she is not a candidate for decortication, our options moving forward include multiple chest tube placements followed by DNase and tPA installation twice daily for 3 days. She will likely be in the hospital for several weeks. The second option is to give her chronic immune suppressing antibiotics. Much of this is going to be based on whether or not she has a longer chance of survival or a shorter chance of survival. We reached out to her oncologist, who is suggesting that she has a pretty decent chance of surviving up to 2 years with her current antibiotics. As such, she would favor that would be more aggressive. As such, we are going to go ahead and move forward with this procedure. PHYSICAL EXAMINATION: VITAL SIGNS: Afebrile, pulse 80, blood pressure 157/80, respirations 18, saturation 95% on room air. GENERAL: The patient is awake and alert, in no apparent distress. LUNGS: Wonderful air entry. There is no prolonged expiratory phase or wheezing present on the right. On the left, there is no air entry. HEART: Normal rate, regular. ABDOMEN: Soft, nontender, and nondistended. Bowel sounds are positive. MUSCULOSKELETAL: No cyanosis or clubbing. No pitting in the bilateral lower extremities. NEUROLOGIC: Grossly nonfocal. LABORATORY DATA: WBC 11.1, hemoglobin 9.9 and stable, platelets 507,000. Basic metabolic profile and liver function studies are essentially unremarkable. Troponin is negative x1. BNP is unremarkable. Lipase was previously negative. Body fluid culture demonstrates a very strong exudate. It is neutrophil predominant. Both of these things have dramatically shifted compared to a prior thoracentesis. The pH is low, and the glucose is low. These are all consistent with evidence for empyema. She actually has Staphylococcus aureus growing in the pleural broth. The chest wall was previously growing MSSA. ASSESSMENT: 1. Acute hypoxic respiratory failure, resolved. 2. Sepsis without end-organ damage. 3. Malignant pleural effusion on the left, status post PleurX catheter, which was superinfected, resulting in chest wall infection and empyema. 4. Breast cancer, metastatic. DISCUSSION AND PLAN: I will put an ID consult in. The patient will likely be on antibiotics for a protracted course. Since she is not a candidate for decortication, we are going to need to put in multiple chest tubes on the left by Interventional Radiology. We will be instilling tPA and DNase into these things twice daily for a period of 3 days. Hopefully, this will allow adequate drainage of these pockets, so that no additional infection will be in these spaces. Pulmonary/Critical Care will continue to follow very closely. Job ID: [id number] MTDD
[2019-03-26 19:44] LABS: Vancomycin, Trough 19.6 ug/mL
[2019-03-27] MEDS: Cefepime 1 GM in Sodium Chloride 0.9% 100 ML IVPB SCH ×2 (05:06→19:34)
[2019-03-27 07:55] LABS: INR-International Normal Ratio 1.2; PTT 32.9 SEC (22.9-36.1); Prothrombin Time 15.4 SEC (12.0-14.7)
[2019-03-27] MEDS: Silver Sulfadiazine 1% Cream 50 GM JAR TOP SCH (09:00)
[2019-03-27] MEDS: Vancomycin HCl 1.5 GM in Sodium Chloride 0.9% 250 ML 300 ML IVPB SCH ×2 (09:08→20:33)
[2019-03-27] MEDS ORDERED: Ondansetron PF 4 MG/2 ML Vial ONE (12:21)
[2019-03-27] MEDS ORDERED: Bupivacaine HCl 0.5%/Epinephrine 1:200,000/PF 30 ml Vial ONE ×2 (12:36→13:37)
[2019-03-27] MEDS ORDERED: Midazolam HCl 2 mg/2 ml Vial ONE (12:37)
[2019-03-27] MEDS ORDERED: Fentanyl 100 MCG/2 ML VIAL ONE ×3 (12:37→16:47)
[2019-03-27] MEDS ORDERED: Rocuronium Bromide 10 MG/ML (10ML VIAL) ONE (13:32)
[2019-03-27] MEDS ORDERED: PROPOFOL 200 MG/20 ML VIAL ONE (13:32)
[2019-03-27] MEDS ORDERED: PHENYLEPHRINE-NS 100 MCG/ML 10 ML SYRINGE ONE (13:32)
--- NOTE | 2019-03-27 13:50 | PRG ---
DATE OF SERVICE: 03/27/2019 SERVICE: Pulmonary Medicine. INTERVAL HISTORY: After talking with Interventional Radiology yesterday, it is pretty clear that the small 12-Hungarian pigtail catheters were probably going to be unsuccessful in reexpanding this space. I talked to Dr. Nye, and he has agreed to see what he can do from a surgical approach. Overnight, she is having a little bit increasing dyspnea. Otherwise, there were no fevers other than some low-grade temperatures. PHYSICAL EXAMINATION: VITAL SIGNS: Afebrile currently. T-max 99.2, pulse 56, blood pressure 115/69, respirations 16, saturation 93%, currently on room air. GENERAL: The patient is awake and alert, in no apparent distress. LUNGS: Good air entry on the right. Poor air entry on the left. No prolonged expiratory phase is present. HEART: Normal rate and regular. ABDOMEN: Soft, nontender, and nondistended. Bowel sounds are positive. MUSCULOSKELETAL: No cyanosis or clubbing. There is 1+ pitting throughout, but it is much more severe in the left upper extremity. NEUROLOGIC: Grossly nonfocal. LABORATORY DATA: WBC 10.4, hemoglobin 9.9, and platelets 507,000 and settling down. Basic metabolic profile and liver function studies are otherwise unremarkable. Cultures are growing MSSA in the pleural fluid broth, as well as chest wall. Blood cultures did not grow these organisms. ASSESSMENT: 1. Acute hypoxic respiratory failure. 2. Sepsis without end-organ damage. 3. Empyema on the left, status post PleurX catheter placement and subsequent removal. 4. Malignant pleural effusion on the left, previously identified. 5. Breast cancer, metastatic. DISCUSSION AND PLAN: We are going to move forward with a decortication. Hopefully, we will be able to have a significant impact on this collection of fluid. Pulmonary/Critical Care will continue to follow along while the patient remains inhouse. Job ID: [id number]
[2019-03-27] MEDS ORDERED: SUGAMMADEX SODIUM 200 MG/2 ML VIAL ONE (15:10)
--- NOTE | 2019-03-27 16:56 | RAD ---
ONE VIEW CHEST: 03/27/19 COMPARISON: 03/26/19. HISTORY: Status post chest tube placement. FINDINGS: Improved aeration of the left lung secondary to a left sided chest tube. Pleural and parenchymal sahni ges do remain. Stable configuration of cardiac silhouette. Stable right sided Mediport catheter. Ther e are increased opacities in the right lung which may represent atelectasis or infiltrate. There is n o pneumothorax. IMPRESSION: Improved aeration of the left lung due to left sided chest tube placement. Residual opacities do garo in. POS: TPC
[2019-03-27] MEDS ORDERED: Ibuprofen 800 MG TAB PO SCH (18:00)
[2019-03-27] MEDS: Morphine 4 MG/ML VIAL SLOW IVP PRN (19:36)
--- NOTE | 2019-03-27 21:27 | PDOC.HOSPP ---
- Subjective Subjective: Doing well post thoracoscopy, drainage and washout of the left lung effusion. Has some cough, but feels a little better in general. - Objective Vital Signs & Weight: Vital Signs (12 hours) Temp Pulse Resp BP Pulse Ox 03/27/19 20:59 98.7 F 107 H 16 101/61 93 L 03/27/19 19:57 97.9 F 104 H 18 101/56 L 91 L 03/27/19 19:29 98.1 F 107 H 18 113/55 L 95 Weight Admit Weight 255 lb Weight 255 lb I&O: 03/26/19 03/27/19 03/28/19 06:59 06:59 06:59 Intake Total 1960 1989 300 Output Total 600 Balance 1360 1989 300 Result Diagrams: 03/26/19 08:36 03/26/19 08:36 Hospitalist ROS - Medication Medications: Active Medications Generic Name Dose Route Start Last Admin Trade Name Freq PRN Reason Stop Dose Admin Cefepime HCl 1 gm/ Sodium 100 mls @ 200 mls/hr 03/25/19 06:00 03/27/19 19:34 Chloride IVPB 100 mls 0600,1800 DHARA Administration Vancomycin HCl 1.5 gm/ Sodium 300 mls @ 200 mls/hr 03/27/19 08:00 03/27/19 20 :33 Chloride IVPB 300 mls 0800,2000 DHARA Administration Ibuprofen 400 mg 03/27/19 18:00 03/27/19 18:30 Motrin PO Not Given Q6HR DHARA Morphine Sulfate 4 mg 03/27/19 17:21 03/27/19 19:36 Morphine SLOW IVP 4 mg Q4H PRN Administration Severe Pain (7-10) Ondansetron HCl 4 mg 03/24/19 21:04 03/26/19 18:20 Zofran Odt PO 4 mg Q6H PRN Administration Nausea/Vomiting Silver Sulfadiazine 0 gm 03/26/19 09:00 03/27/19 09:00 Silvadene TOP Not Given DAILY DHARA Sodium Chloride 10 ml 03/24/19 21:17 03/27/19 05:06 Flush - Normal Saline IVF 10 ml PRN PRN Administration Saline Flush Tramadol HCl 75 mg 03/24/19 21:15 03/25/19 20:28 Ultram PO 75 mg DAILYPRN PRN Administration Moderate Pain (4-6) - Exam General Appearance: NAD, awake alert Neck: supple, symmetric, no JVD, no thyromegaly, no lymphadenopathy, no carotid bruit Heart: RRR, no murmur, no gallops, no rubs, normal peripheral pulses Respiratory - other findings: Modest wheezes on left. Right clear. Gastrointestinal: soft, non-tender, non-distended, normal bowel sounds, no palpable masses, no hepatomegaly, no splenomegaly, no bruit Musculoskeletal: normal tone Hosp A/P (1) Breast cancer Status: Acute Qualifiers: Laterality: left (2) Pleural effusion Code(s): J90 - PLEURAL EFFUSION, NOT ELSEWHERE CLASSIFIED Status: Acute (3) Abscess or cellulitis of chest wall Code(s): GHE1638 - Status: Acute (4) Staph aureus infection Code(s): A49.01 - METHICILLIN SUSCEP STAPH INFECTION, UNSP SITE Status: Acute - Plan Discussed with Dr. Nye. Consult with Dr. Arias. Planned IR placement of smaller drains. Given the need for larger drain, Dr. Nye drained 1100 cc of infected fluid and washed out the hemithorax. Placed drain. Follow up CXR still with significant whiteout of the left lung, but modest bit of aeration. Will continue IV abx for the staph. Will follow output and signs of infection resolution. Concerning that she will continue to have significant output or persistent infection. Discussed with the patient, her and children at length.
[2019-03-27] MEDS: Ibuprofen 800 MG TAB PO SCH (21:39)
--- NOTE | 2019-03-27 21:43 | PDOC.HOSPP ---
- Subjective Encounter Date: 03/26/19 Subjective: Feeling some better. Feels like she is breathing better. - Objective Vital Signs & Weight: Vital Signs (12 hours) Temp Pulse Resp BP Pulse Ox 03/27/19 20:59 98.7 F 107 H 16 101/61 93 L 03/27/19 19:57 97.9 F 104 H 18 101/56 L 91 L 03/27/19 19:29 98.1 F 107 H 18 113/55 L 95 03/27/19 18:00 93 L Weight Admit Weight 255 lb Weight 255 lb I&O: 03/26/19 03/27/19 03/28/19 06:59 06:59 06:59 Intake Total 1960 1989 300 Output Total 600 Balance 1360 1989 300 Result Diagrams: 03/26/19 08:36 03/26/19 08:36 Hospitalist ROS - Medication Medications: Active Medications Generic Name Dose Route Start Last Admin Trade Name Freq PRN Reason Stop Dose Admin Cefepime HCl 1 gm/ Sodium 100 mls @ 200 mls/hr 03/25/19 06:00 03/27/19 19:34 Chloride IVPB 100 mls 0600,1800 DHARA Administration Vancomycin HCl 1.5 gm/ Sodium 300 mls @ 200 mls/hr 03/27/19 08:00 03/27/19 20 :33 Chloride IVPB 300 mls 0800,2000 DHARA Administration Ibuprofen 400 mg 03/27/19 22:00 03/27/19 21:39 Motrin PO 400 mg 0400,1000,1600,2200 DHARA Administration Morphine Sulfate 4 mg 03/27/19 17:21 03/27/19 19:36 Morphine SLOW IVP 4 mg Q4H PRN Administration Severe Pain (7-10) Ondansetron HCl 4 mg 03/24/19 21:04 03/26/19 18:20 Zofran Odt PO 4 mg Q6H PRN Administration Nausea/Vomiting Silver Sulfadiazine 0 gm 03/26/19 09:00 03/27/19 09:00 Silvadene TOP Not Given DAILY DHARA Sodium Chloride 10 ml 03/24/19 21:17 03/27/19 05:06 Flush - Normal Saline IVF 10 ml PRN PRN Administration Saline Flush Tramadol HCl 75 mg 03/24/19 21:15 03/25/19 20:28 Ultram PO 75 mg DAILYPRN PRN Administration Moderate Pain (4-6) - Exam General Appearance: NAD, awake alert Heart: RRR, no murmur, no gallops, no rubs, normal peripheral pulses Heart - other findings: Tachy Respiratory - other findings: Right clear. Absent breath sounds on left. Gastrointestinal: soft, non-tender, non-distended, normal bowel sounds, no palpable masses, no hepatomegaly, no splenomegaly, no bruit Musculoskeletal: normal tone Psychiatric: normal affect, normal behavior, A&O x 3 Hosp A/P (1) Breast cancer Status: Acute Qualifiers: Laterality: left (2) Pleural effusion Code(s): J90 - PLEURAL EFFUSION, NOT ELSEWHERE CLASSIFIED Status: Acute (3) Abscess or cellulitis of chest wall Code(s): [id number] - Status: Acute (4) Staph aureus infection Code(s): A49.01 - METHICILLIN SUSCEP STAPH INFECTION, UNSP SITE Status: Acute (5) Sepsis Code(s): A41.9 - SEPSIS, UNSPECIFIED ORGANISM Status: Acute (6) Empyema Code(s): J86.9 - PYOTHORAX WITHOUT FISTULA Status: Acute - Plan Had thoracentesis. Positive for Staph. Discussed with Dr. Arias and Dr. Nye. Will need to try drainage given the empyema. Talked to Dr. Jaden Castro, patient's oncologist. She feels it is appropriate to continue to be aggressive. Discussed with patient and her and they want to be aggressive. Discussed with IR. Anticipate US guided placement. Continue IV ABX.
[2019-03-28] MEDS: traMADol HCl 50 MG TAB PO PRN (01:35)
[2019-03-28] MEDS: Ibuprofen 800 MG TAB PO SCH (03:57)
[2019-03-28] MEDS: Cefepime 1 GM in Sodium Chloride 0.9% 100 ML IVPB SCH ×2 (06:27→19:47)
[2019-03-28] MEDS: Morphine 4 MG/ML VIAL SLOW IVP PRN (09:11)
[2019-03-28] MEDS: Silver Sulfadiazine 1% Cream 50 GM JAR TOP SCH (09:11)
[2019-03-28] MEDS: Vancomycin HCl 1.5 GM in Sodium Chloride 0.9% 250 ML 300 ML IVPB SCH (14:25)
--- NOTE | 2019-03-28 15:31 | PDOC.HOSPP ---
- Subjective Subjective: Feeling some better. Feels like she is breathing a little better. Cough is less. - Objective Vital Signs & Weight: Vital Signs (12 hours) Temp Pulse Resp BP Pulse Ox 03/28/19 08:00 97.5 F L 98 18 131/55 L 98 03/28/19 04:00 97.6 F 102 H 16 112/62 96 Weight Admit Weight 255 lb Weight 255 lb I&O: 03/27/19 03/28/19 03/29/19 06:59 06:59 06:59 Intake Total 1989 740 Output Total 600 750 Balance 1989 140 -750 Result Diagrams: 03/26/19 08:36 03/26/19 08:36 Hospitalist ROS - Medication Medications: Active Medications Generic Name Dose Route Start Last Admin Trade Name Freq PRN Reason Stop Dose Admin Cefepime HCl 1 gm/ Sodium 100 mls @ 200 mls/hr 03/25/19 06:00 03/28/19 06:27 Chloride IVPB 100 mls 0600,1800 DHARA Administration Vancomycin HCl 1.5 gm/ Sodium 300 mls @ 200 mls/hr 03/27/19 08:00 03/28/19 14 :25 Chloride IVPB 300 mls 0800,2000 DHARA Administration Morphine Sulfate 4 mg 03/27/19 17:21 03/28/19 09:11 Morphine SLOW IVP 4 mg Q4H PRN Administration Severe Pain (7-10) Ondansetron HCl 4 mg 03/24/19 21:04 03/26/19 18:20 Zofran Odt PO 4 mg Q6H PRN Administration Nausea/Vomiting Silver Sulfadiazine 0 gm 03/26/19 09:00 03/28/19 09:11 Silvadene TOP 1 applic DAILY DHARA Administration Sodium Chloride 10 ml 03/24/19 21:17 03/28/19 09:15 Flush - Normal Saline IVF 10 ml PRN PRN Administration Saline Flush Tramadol HCl 75 mg 03/24/19 21:15 03/28/19 01:35 Ultram PO 75 mg DAILYPRN PRN Administration Moderate Pain (4-6) - Exam General Appearance: NAD, awake alert Heart: RRR, no murmur, no gallops, no rubs, normal peripheral pulses Heart - other findings: Tachy. Respiratory - other findings: Right clear. Left clear, but very diminished. No wheezes today. Gastrointestinal: soft, non-tender, non-distended Psychiatric: normal affect, normal behavior, A&O x 3 Hosp A/P (1) Breast cancer Status: Acute Qualifiers: Laterality: left (2) Pleural effusion Code(s): J90 - PLEURAL EFFUSION, NOT ELSEWHERE CLASSIFIED Status: Acute (3) Abscess or cellulitis of chest wall Code(s): [id number] - Status: Acute (4) Staph aureus infection Code(s): A49.01 - METHICILLIN SUSCEP STAPH INFECTION, UNSP SITE Status: Acute (5) Sepsis Code(s): A41.9 - SEPSIS, UNSPECIFIED ORGANISM Status: Acute (6) Empyema Code(s): J86.9 - PYOTHORAX WITHOUT FISTULA Status: Acute - Plan Had thoracentesis. Positive for Staph. Discussed with Dr. Arias and Dr. Nye. Dr. Nye drained 1100 cc of purulent fluid from left hemithorax. Washed out the lung and placed a drain. Continue with drain and IV abx for staph for now. Monitor lung re-expansion and drain output. Continue IV ABX. Long discussion with the patient and her . All questions answered.
[2019-03-28] MEDS: Ibuprofen 100 MG/5 ML UDCUP PO SCH ×2 (17:00→21:48)
--- NOTE | 2019-03-28 19:15 | PRG ---
DATE OF SERVICE: 03/28/2019 SERVICE: Pulmonary Medicine. INTERVAL HISTORY: The patient is doing fine from Respiratory standpoint. She underwent the decortication yesterday. She denies any current fevers or chills. She actually said she is breathing a little bit easier. Otherwise, there were no events. She has had significant output from her chest tube. PHYSICAL EXAMINATION: VITAL SIGNS: Afebrile, pulse 101, blood pressure 107/65, respirations 15, saturation 97% on 2.5 L nasal cannula. GENERAL: The patient is awake and alert. She is in no apparent distress. LUNGS: Decent air entry on the right. There is actually some good air movement on the left today. There is no prolonged expiratory phase. Rhonchi are there on the left. HEART: Normal rate and regular. ABDOMEN: Soft, nontender, nondistended. Bowel sounds are positive. MUSCULOSKELETAL: No cyanosis or clubbing. There is pitting in the left upper extremity. There is trace to 1+ pitting throughout otherwise. NEUROLOGIC: Grossly nonfocal. IMAGING STUDIES: Chest x-ray demonstrates improved aeration in the left lung. There is still extensive pulmonary parenchymal disease present. ASSESSMENT: 1. Acute hypoxic respiratory failure, resolved. 2. Sepsis without end-organ damage. 3. Empyema on the left, status post decortication, postoperative day #1. 4. Malignant pleural effusion on the left. 5. Breast cancer, metastatic. DISCUSSION AND PLAN: I will involve Physical Therapy and see if we can get the patient into a chair twice daily. I will increase her activity as she tolerates it. Mobility will help her recover from this procedure. I will likely be repeating a CT scan in 48 hours to evaluate for additional pockets of fluid. If present, we will discuss whether or not these need to be approached through time. The patient will likely require a protracted course of antibiotics as I do not think that 100% clearance of this pleural space is feasible. Job ID: [id number]
[2019-03-28] MEDS ORDERED: Cepastat Lozenges 1 LOZ PO PRN (20:31)
[2019-03-29 02:19] LABS: #Eosinphils 0.2 thou/uL (0.0-0.7); #Lymphocytes 0.7 thou/uL (1.20-3.40); #Monocytes 0.2 thou/uL (0.11-0.59); #Neutrophils 6.5 thou/uL (1.40-6.50); %Eosinophils 2.1 % (0.0-10.0); %Lymphocytes 9.5 % (21.0-51.0); %Monocytes 2.3 % (0.0-10.0); %Neutrophils 86.1 % (42.0-75.0); Hemoglobin 9.2 g/dL (12.0-16.0); Mean Corpuscular HGB CONC 30.6 g/dL (32.0-36.0); Mean Corpuscular Volume 81.9 fL (78.0-98.0); Mean Platelet Volume 7.3 fL (7.4-10.4); Platelet Count 366 thou/uL (130-400); RBC Distribution Width 19.4 % (11.5-14.5); Red Blood Cell (RBC) Count 3.67 mill/uL (4.20-5.40); White Blood Cell (WBC) Count 7.6 thou/uL (4.8-10.8)
[2019-03-29 02:44] LABS: Vancomycin, Trough 32.3 ug/mL
--- NOTE | 2019-03-29 02:51 | PDOC.EVN ---
Event Note - Event Note Event Note: Critical vanc trough; pharmacy notified as well.
[2019-03-29] MEDS ORDERED: Vancomycin HCl 1.5 GM in Sodium Chloride 0.9% 250 ML 300 ML IVPB SCH (03:00)
[2019-03-29 03:16] LABS: Anion Gap 13 mmol/L (10-20); BUN (Urea Nitrogen) 31 mg/dL (9.8-20.1); Calc. Creatinine Clearance 105 mL/min (70-130); Calcium 8.1 mg/dL (7.8-10.44); Carbon Dioxide 24 mmol/L (22-29); Chloride 107 mmol/L (98-107); Estimated GFR-MDRD 53; Glucose 113 mg/dL (70-105); Sodium 140 mmol/L (136-145)
[2019-03-29] MEDS ORDERED: Sodium Chloride 0.9% 250 ML IVPB SCH (06:15)
[2019-03-29] MEDS: Ibuprofen 100 MG/5 ML UDCUP PO SCH ×3 (06:17→15:09)
[2019-03-29] MEDS: Cefepime 1 GM in Sodium Chloride 0.9% 100 ML IVPB SCH ×2 (06:17→17:18)
[2019-03-29] MEDS: Morphine 4 MG/ML VIAL SLOW IVP PRN (08:44)
[2019-03-29] MEDS: Silver Sulfadiazine 1% Cream 50 GM JAR TOP SCH (09:00)
--- NOTE | 2019-03-29 15:26 | EKG ---
Test Reason : Blood Pressure : / mmHG Vent. Rate : 109 BPM Atrial Rate : 109 BPM P-R Int : 098 ms QRS Dur : 088 ms QT Int : 340 ms P-R-T Axes : 030 056 010 degrees QTc Int : 457 ms Sinus tachycardia with short CO Low voltage QRS Borderline ECG Confirmed by DIONTE CENTENO, RODOLFO ([id number]), video tape editor DANII GODINEZ ([id number]) on 03/29/2019 3:25:23 PM Referred By: Confirmed By:RODOLFO RAPP MD
[2019-03-29 16:09] LABS: Vancomycin, Random 24.2 ug/mL (See Comment)
[2019-03-29] MEDS: traMADol HCl 50 MG TAB PO PRN (17:07)
[2019-03-29] MEDS ORDERED: Sodium Chloride 0.9% 1,000 ML IV SCH (17:15)
[2019-03-29] MEDS: Vancomycin HCl 1.5 GM in Sodium Chloride 0.9% 250 ML 300 ML IVPB SCH (17:30)
--- NOTE | 2019-03-29 17:43 | PDOC.HOSPP ---
- Subjective Encounter Date: 03/29/19 Encounter Time: 17:25 Subjective: f/u for left hemithorax effusion s/p chest tube and washout with isolated staph spp on Vanc/Cefepime. Feels better overall but still sore. Nursing reports decreased urine output over last 24h. - Objective Vital Signs & Weight: Vital Signs (12 hours) Temp Pulse Pulse Resp BP BP Pulse Ox 03/29/19 14:11 94 117/61 03/29/19 08:00 97.4 F L 96 18 115/56 L 99 Pulse Ox 03/29/19 14:11 97 03/29/19 08:00 Weight Admit Weight 255 lb Weight 255 lb I&O: 03/28/19 03/29/19 03/30/19 06:59 06:59 06:59 Intake Total 740 680 Output Total 600 1850 Balance 140 -1170 Result Diagrams: 03/29/19 02:09 03/29/19 02:09 Additional Labs: Microbiology 03/25/19 17:05 Pleural fluid Direct Acid Fast Bacilli Smear - Final 03/25/19 17:05 Pleural fluid Acid Fast Bacilli Smear - Final 03/25/19 17:05 Pleural fluid Body Fluid Culture - Final Staphylococcus aureus 03/24/19 19:00 Chest - Pending Bacterial Culture - Final Staphylococcus aureus 03/24/19 17:29 Venous blood - Right Hand Blood Culture - Final Coagulase Neg Staphylococcus 03/25/19 17:05 Pleural fluid Acid Fast Bacilli Culture - Preliminary Specimen has been received and culture in progress. No Growth to date. 03/24/19 17:29 Venous blood - Right Hand Blood Culture - Preliminary NO GROWTH AT 48 HOURS Laboratory Tests 03/24/19 03/25/19 03/25/19 17:28 04:56 04:56 WBC 17.3 H 15.0 H Estimated GFR (MDRD) 86 Vancomycin Trough Random Vancomycin 03/26/19 03/26/19 03/29/19 08:36 08:36 02:09 WBC 11.4 H Estimated GFR (MDRD) Greater than 90 53 Vancomycin Trough Random Vancomycin 03/29/19 03/29/19 02:09 15:44 WBC Estimated GFR (MDRD) Vancomycin Trough 32.3 H* Random Vancomycin 24.2 Hospitalist ROS - Medication Medications: Active Medications Generic Name Dose Route Start Last Admin Trade Name Freq PRN Reason Stop Dose Admin Acetaminophen 650 mg 03/24/19 21:04 03/29/19 17:08 Tylenol PO 650 mg Q4H PRN Administration Headache/Fever/Mild Pain (1-3) Cefepime HCl 1 gm/ Sodium 100 mls @ 200 mls/hr 03/25/19 06:00 03/29/19 17:18 Chloride IVPB 100 mls 0600,1800 DHARA Administration Ibuprofen 400 mg 03/28/19 14:00 03/29/19 15:09 Motrin PO 400 mg Q8HR DHARA Administration Morphine Sulfate 4 mg 03/27/19 17:21 03/29/19 08:44 Morphine SLOW IVP 4 mg Q4H PRN Administration Severe Pain (7-10) Ondansetron HCl 4 mg 03/24/19 21:04 03/26/19 18:20 Zofran Odt PO 4 mg Q6H PRN Administration Nausea/Vomiting Silver Sulfadiazine 0 gm 03/26/19 09:00 03/28/19 09:11 Silvadene TOP 1 applic DAILY DHARA Administration Sodium Chloride 10 ml 03/24/19 21:17 03/29/19 17:18 Flush - Normal Saline IVF 10 ml PRN PRN Administration Saline Flush Tramadol HCl 75 mg 03/24/19 21:15 03/29/19 17:07 Ultram PO 75 mg DAILYPRN PRN Administration Moderate Pain (4-6) - Exam General Appearance: NAD, awake alert Eye: PERRL, anicteric sclera ENT: normocephalic atraumatic, no oropharyngeal lesions Neck: supple, symmetric, no JVD, no thyromegaly Heart: RRR, no murmur, no gallops, no rubs, normal peripheral pulses Respiratory: no wheezes, no rales Respiratory - other findings: diminished in L base, CT in L hemithorax Gastrointestinal: soft, non-tender, non-distended, normal bowel sounds Gastrointestinal - other findings: Obese, [place] with rod urine Extremities: 1+ LE edema Skin: normal turgor Neurological: cranial nerve grossly intact, no focal deficits, no new deficit Musculoskeletal: normal tone Psychiatric: A&O x 3 Hosp A/P (1) ALPHONSE (acute kidney injury) Code(s): N17.9 - ACUTE KIDNEY FAILURE, UNSPECIFIED Status: Acute Plan: Likely multifactorial including dehydration in conjunction with Vancomycin, limit nephrotoxic agents and contrast exposure, IVF NS 125ml/h, serial creatinine (2) Abscess or cellulitis of chest wall Code(s): [id number] - Status: Acute Plan: Stap spp isolated, continue Vanc/Cefepime, local care (3) Empyema Code(s): J86.9 - PYOTHORAX WITHOUT FISTULA Status: Acute Plan: s/p CT with washout, continue mgmt as described above (4) Pleural effusion Code(s): J90 - PLEURAL EFFUSION, NOT ELSEWHERE CLASSIFIED Status: Acute Plan: L pleural effusion, see above (5) Metastatic breast carcinoma Code(s): C50.919 - MALIGNANT NEOPLASM OF UNSP SITE OF UNSPECIFIED FEMALE BREAST Status: Chronic Plan: Continue mgmt per Medical Oncology service (6) Sepsis Code(s): A41.9 - SEPSIS, UNSPECIFIED ORGANISM Status: Acute Plan: Resolved with IV abx and supportive mgmt - Plan plan discussed w/ family, continue antibiotics, PT/OT, social work coordinator, out of bed/ambulate, DVT proph w/SCDs Stable currently Start IVF NS 125ml/h Humidify O2 Continue Cefepime, hold Vancomycin AM lab: BMP
[2019-03-29] MEDS: Sodium Chloride 0.9% 1,000 ML IV SCH (19:21)
--- NOTE | 2019-03-29 21:05 | PRG ---
DATE OF SERVICE: 03/29/2019 SERVICE: Pulmonary Medicine. INTERVAL HISTORY: The patient is doing really well from respiratory standpoint. She is able to stand up with physical therapy today, and take some shuffling steps. Outside of that, there has been no interval change to her condition. PHYSICAL EXAMINATION: VITAL SIGNS: Afebrile, pulse 92, blood pressure, respirations 12, saturation 95% on 3 L nasal cannula. GENERAL: The patient is awake and alert, in no apparent distress. LUNGS: Decent air entry. No prolonged expiratory phase or wheezing is appreciated. There is decreased air entry on the left, but is present. NEUROLOGIC: Grossly nonfocal. HEART: Normal rate and regular. ABDOMEN: Soft, nontender, nondistended. Bowel sounds are positive. LABORATORY DATA: WBC 7.6, hemoglobin 9.2, and platelets 366,000. INR 1.2. Basic metabolic profile is improving beautifully. Creatinine is gently up trending to 1.07, calcium 8.1. Urinalysis is unremarkable. Vancomycin trough was 32.3. As such, her vancomycin was appropriately adjusted. Staph aureus is growing in the pleural broth. ASSESSMENT: 1. Acute hypoxic respiratory failure, resolved. 2. Sepsis without end-organ damage. 3. Empyema on the left, status post decortication, postop day 2. 4. Malignant pleural effusion on the left. 5. Breast cancer, metastatic. 6. Acute kidney injury, likely vancomycin toxicity. DISCUSSION AND PLAN: The patient is doing fine from respiratory standpoint. My plan is to repeat a CT scan of the chest tomorrow morning. Unfortunately, I will need to use contrast. I would like to see her creatinine downtrend before we do this. Vancomycin has been appropriately adjusted. She has been initiated on gentle hydration. Pulmonary/Critical Care will follow along. Based on the results of the CT of the chest, we will know what the next step will need to be. Job ID: [id number] [facility]
[2019-03-30] MEDS: Sodium Chloride 0.9% 1,000 ML IV SCH ×5 (01:44→18:00)
[2019-03-30 04:05] LABS: Anion Gap 14 mmol/L (10-20); BUN (Urea Nitrogen) 33 mg/dL (9.8-20.1); Calc. Creatinine Clearance 97 mL/min (70-130); Calcium 7.9 mg/dL (7.8-10.44); Carbon Dioxide 25 mmol/L (22-29); Chloride 107 mmol/L (98-107); Estimated GFR-MDRD 48; Glucose 93 mg/dL (70-105); Potassium 4.1 mmol/L (3.5-5.1); Sodium 142 mmol/L (136-145)
[2019-03-30] MEDS: Cefepime 1 GM in Sodium Chloride 0.9% 100 ML IVPB SCH ×2 (05:59→17:58)
[2019-03-30] MEDS: Vancomycin HCl 1 GM in Premix Bag 1 BAG IVPB SCH ×3 (09:00→20:44)
[2019-03-30] MEDS: Silver Sulfadiazine 1% Cream 50 GM JAR TOP SCH (09:23)
--- NOTE | 2019-03-30 09:33 | CT ---
CHEST CT WITH CONTRAST: HISTORY: Follow-up empyema. Status post decortication. COMPARISON: CT angiogram of the chest 03/24/2019. FINDINGS: Mediastinum: No mass, lymphadenopathy, or hematoma. Heart: Normal heart size. No significant pericardial fluid. Aorta: Normal caliber. No periaortic fat stranding. Upper abdomen: No solid organ abnormality. Pleural spaces: No evidence of a right-sided pleural effusion. Left-sided chest tube with evidence of a left-sided hydropneumothorax. There is consolidation of the left upper lobe and lower lobe which may be due to atelectasis and/or pneumonia. Underlying mass cannot be excluded. There is left pleural thickening and irregularity. Chest wall: Edematous changes along the left chest wall. Small foci of subcutaneous air noted along t he posterior left chest wall. Surgical clips are noted in the left axilla. Multiple soft tissue densities in the chest wall are once again demonstrated. IMPRESSION: Interval placement of a large-bore left-sided chest tube. The amount of left-sided pleural effusion h as decreased. There is evidence of hydropneumothorax. There has been collapse of the left upper lobe and left lower lobe which may represent atelectasis. A superimposed mass or pneumonia cannot be excluded. Transcribed Date/Time: 03/30/2019 9:56 AM
[2019-03-30] MEDS: Morphine 4 MG/ML VIAL SLOW IVP PRN (12:56)
--- NOTE | 2019-03-30 15:10 | PDOC.HOSPP ---
- Subjective Encounter Date: 03/30/19 Encounter Time: 15:10 Subjective: f/u for malignant L pleural effusion s/p decortication with L chest tube. Continues on Cefepime/Vancomycin. No new events reported. - Objective Vital Signs & Weight: Vital Signs (12 hours) Temp Pulse Resp BP Pulse Ox 03/30/19 08:00 98.3 F 98 18 99/55 L 96 03/30/19 03:30 97.9 F 91 12 105/58 L 95 Weight Admit Weight 255 lb Weight 255 lb I&O: 03/29/19 03/30/19 03/31/19 06:59 06:59 06:59 Intake Total 680 1815 Output Total 1850 1100 Balance -1170 715 Result Diagrams: 03/29/19 02:09 03/30/19 03:23 Additional Labs: Microbiology 03/25/19 17:05 Pleural fluid Direct Acid Fast Bacilli Smear - Final 03/25/19 17:05 Pleural fluid Acid Fast Bacilli Smear - Final 03/25/19 17:05 Pleural fluid Body Fluid Culture - Final Staphylococcus aureus 03/24/19 19:00 Chest - Pending Bacterial Culture - Final Staphylococcus aureus 03/24/19 17:29 Venous blood - Right Hand Blood Culture - Final Coagulase Neg Staphylococcus 03/25/19 17:05 Pleural fluid Acid Fast Bacilli Culture - Preliminary Specimen has been received and culture in progress. No Growth to date. 03/24/19 17:29 Venous blood - Right Hand Blood Culture - Preliminary NO GROWTH AT 48 HOURS Laboratory Tests 03/24/19 03/25/19 03/25/19 17:28 04:56 04:56 WBC 17.3 H 15.0 H Estimated GFR (MDRD) 86 Vancomycin Trough Random Vancomycin 03/26/19 03/26/19 03/29/19 08:36 08:36 02:09 WBC 11.4 H Estimated GFR (MDRD) Greater than 90 53 Vancomycin Trough Random Vancomycin 03/29/19 03/29/19 02:09 15:44 WBC Estimated GFR (MDRD) Vancomycin Trough 32.3 H* Random Vancomycin 24.2 Radiology Reviewed by me: Yes (CT chest - L hydropneumothorax, L CT in place, atelectasis) Hospitalist ROS - Medication Medications: Active Medications Generic Name Dose Route Start Last Admin Trade Name Freq PRN Reason Stop Dose Admin Acetaminophen 650 mg 03/24/19 21:04 03/29/19 17:08 Tylenol PO 650 mg Q4H PRN Administration Headache/Fever/Mild Pain (1-3) Cefepime HCl 1 gm/ Sodium 100 mls @ 200 mls/hr 03/25/19 06:00 03/30/19 05:59 Chloride IVPB 100 mls 0600,1800 DHARA Administration Vancomycin HCl 1 gm/ Device 200 mls @ 200 mls/hr 03/30/19 08:00 03/30/19 09: 15 IVPB 200 mls 0800,2000 DHARA Administration Sodium Chloride 1,000 mls @ 125 mls/hr 03/29/19 17:20 03/30/19 11:01 Normal Saline 0.9% IV 1,000 mls .Q8H DHARA Administration Ibuprofen 400 mg 03/28/19 14:00 03/29/19 15:09 Motrin PO 400 mg Q8HR DHARA Administration Morphine Sulfate 4 mg 03/27/19 17:21 03/30/19 12:56 Morphine SLOW IVP 4 mg Q4H PRN Administration Severe Pain (7-10) Ondansetron HCl 4 mg 03/24/19 21:04 03/26/19 18:20 Zofran Odt PO 4 mg Q6H PRN Administration Nausea/Vomiting Silver Sulfadiazine 0 gm 03/26/19 09:00 03/30/19 09:23 Silvadene TOP 1 applic DAILY DHARA Administration Sodium Chloride 10 ml 03/24/19 21:17 03/30/19 09:16 Flush - Normal Saline IVF 10 ml PRN PRN Administration Saline Flush Tramadol HCl 75 mg 03/24/19 21:15 03/29/19 17:07 Ultram PO 75 mg DAILYPRN PRN Administration Moderate Pain (4-6) - Exam General Appearance: NAD, awake alert Eye: PERRL, anicteric sclera ENT: normocephalic atraumatic, no oropharyngeal lesions Neck: supple, symmetric, no JVD, no thyromegaly, no lymphadenopathy Heart: RRR, no murmur, no gallops, no rubs, normal peripheral pulses Respiratory: no wheezes, no ronchi Respiratory - other findings: diminished in L hemithorax, L CT in place Gastrointestinal: soft, non-tender, non-distended, normal bowel sounds Gastrointestinal - other findings: obese Extremities: no cyanosis Extremities - other findings: + edema of bilat UE's Skin: normal turgor Neurological: cranial nerve grossly intact, no focal deficits, no new deficit Musculoskeletal: normal tone, generalized weakness Psychiatric: normal affect, A&O x 3 Hosp A/P (1) ALPHONSE (acute kidney injury) Code(s): N17.9 - ACUTE KIDNEY FAILURE, UNSPECIFIED Status: Acute Plan: Avoid nephrotoxic agents and limit contrast exposure, continue IVF's, serial creatinine (2) Abscess or cellulitis of chest wall Code(s): RCK2855 - Status: Acute Plan: Continue Cefepime/Vancomycin (3) Empyema Code(s): J86.9 - PYOTHORAX WITHOUT FISTULA Status: Acute Plan: See below (4) Pleural effusion Code(s): J90 - PLEURAL EFFUSION, NOT ELSEWHERE CLASSIFIED Status: Acute Plan: Malignant effusion given hx of breast CA, continue CT for drainage (5) Metastatic breast carcinoma Code(s): C50.919 - MALIGNANT NEOPLASM OF UNSP SITE OF UNSPECIFIED FEMALE BREAST Status: Chronic (6) Sepsis Code(s): A41.9 - SEPSIS, UNSPECIFIED ORGANISM Status: Acute - Plan plan discussed w/ family, continue antibiotics, PT/OT, social studies department chair, respiratory therapy, incentive spirometry Stable currently Continue IVF NS 125ml/h Humidify O2 Continue Cefepime, renal dosed Vancomycin Incentive spirometry AM lab: BMP
--- NOTE | 2019-03-30 17:23 | PRG ---
DATE OF SERVICE: 03/30/2019 SERVICE: Pulmonary Medicine. INTERVAL HISTORY: The patient is doing really quite well from respiratory standpoint. She has improving strength. She denies any current fevers, chills, shortness of breath, nausea, or vomiting. I reviewed the CT scan with her and gave her hopefully what I feel is positive news. PHYSICAL EXAMINATION: VITAL SIGNS: Afebrile. Pulse 98, blood pressure 99/55, respirations 18, saturation 96% on 3 L nasal cannula. GENERAL: The patient is awake and alert, in no apparent distress. LUNGS: Decent air entry on the right. There is decreased air entry on the left. HEART: Normal rate, regular. ABDOMEN: Soft, nontender, nondistended. Bowel sounds are positive. MUSCULOSKELETAL: No cyanosis or clubbing. There is no pitting in the bilateral lower extremities. NEUROLOGIC: Grossly nonfocal. LABORATORY DATA: Sodium 142. Basic metabolic profile is otherwise unremarkable. Creatinine trend is gently going up. Staph aureus is growing in the pleural broth. IMAGING: CT of the chest demonstrates hydropneumothorax ex vacuo. Thankfully, it looks as though there was no significant extra loculations of fluid that were left behind. There is a very thickened pleural surface. This lung is trapped and will never reexpand. ASSESSMENT: 1. Acute hypoxic respiratory failure, resolved. 2. Sepsis without end-organ damage. 3. Empyema on the left, status post decortication, postop day #3. 4. Malignant pleural effusion on the left. 5. Hydropneumothorax ex vacuo in a trapped lung. 6. Breast cancer, metastatic. 7. Acute kidney injury. DISCUSSION AND PLAN: The patient is doing wonderful from respiratory standpoint. At this point, I think it would be reasonable for us to transition her over to p.o. medication. I would like for her to have a protracted course of antibiotics. Pulmonary/Critical Care will continue to follow along. We can plan for discharge shortly after the chest tube come out. Job ID: [id number] MTDD
[2019-03-30] MEDS ORDERED: Calcium Carbonate 500 MG ChewTAB PO PRN (21:06)
[2019-03-31] MEDS: Sodium Chloride 0.9% 1,000 ML IV SCH ×3 (04:30→16:18)
[2019-03-31 05:12] LABS: Anion Gap 13 mmol/L (10-20); BUN (Urea Nitrogen) 32 mg/dL (9.8-20.1); Calc. Creatinine Clearance 100 mL/min (70-130); Carbon Dioxide 22 mmol/L (22-29); Chloride 110 mmol/L (98-107); Estimated GFR-MDRD 50; Glucose 92 mg/dL (70-105); Sodium 141 mmol/L (136-145)
[2019-03-31] MEDS: Cefepime 1 GM in Sodium Chloride 0.9% 100 ML IVPB SCH ×2 (05:38→17:25)
[2019-03-31] MEDS: Vancomycin HCl 1 GM in Premix Bag 1 BAG IVPB SCH (08:07)
[2019-03-31] MEDS: Silver Sulfadiazine 1% Cream 50 GM JAR TOP SCH (08:13)
[2019-03-31] MEDS: guaiFENesin ER 600 MG TAB PO SCH ×2 (08:14→22:05)
--- NOTE | 2019-03-31 14:44 | PDOC.HOSPP ---
- Subjective Encounter Date: 03/31/19 Encounter Time: 14:40 Subjective: f/u for malignant L pleural effusion s/p CT insertion/decortication on IV Cefepime/Vancomycin. Remains on CT with large volume drainage. Feels weak and coughing. - Objective Vital Signs & Weight: Vital Signs (12 hours) Temp Pulse Resp BP Pulse Ox 03/31/19 08:00 97.8 F 108 H 22 H 154/68 H 94 L Weight Admit Weight 255 lb Weight 255 lb I&O: 03/30/19 03/31/19 04/01/19 06:59 06:59 06:59 Intake Total 1815 3780 Output Total 1100 1695 Balance 715 2085 Result Diagrams: 03/29/19 02:09 03/31/19 04:30 Additional Labs: Microbiology 03/25/19 17:05 Pleural fluid Direct Acid Fast Bacilli Smear - Final 03/25/19 17:05 Pleural fluid Acid Fast Bacilli Smear - Final 03/25/19 17:05 Pleural fluid Body Fluid Culture - Final Staphylococcus aureus 03/24/19 19:00 Chest - Pending Bacterial Culture - Final Staphylococcus aureus 03/24/19 17:29 Venous blood - Right Hand Blood Culture - Final Coagulase Neg Staphylococcus 03/25/19 17:05 Pleural fluid Acid Fast Bacilli Culture - Preliminary Specimen has been received and culture in progress. No Growth to date. 03/24/19 17:29 Venous blood - Right Hand Blood Culture - Preliminary NO GROWTH AT 48 HOURS Laboratory Tests 03/24/19 03/25/19 03/25/19 17:28 04:56 04:56 WBC 17.3 H 15.0 H Estimated GFR (MDRD) 86 Vancomycin Trough Random Vancomycin 03/26/19 03/26/19 03/29/19 08:36 08:36 02:09 WBC 11.4 H Estimated GFR (MDRD) Greater than 90 53 Vancomycin Trough Random Vancomycin 03/29/19 03/29/19 02:09 15:44 WBC Estimated GFR (MDRD) Vancomycin Trough 32.3 H* Random Vancomycin 24.2 Radiology Reviewed by me: Yes (CT chest - L CT in place, atelectasis LILIA/LL, + effusion ) Hospitalist ROS - Medication Medications: Active Medications Generic Name Dose Route Start Last Admin Trade Name Freq PRN Reason Stop Dose Admin Acetaminophen 650 mg 03/24/19 21:04 03/29/19 17:08 Tylenol PO 650 mg Q4H PRN Administration Headache/Fever/Mild Pain (1-3) Guaifenesin 600 mg 03/31/19 09:00 03/31/19 08:14 Mucinex PO Not Given Q12HR DHARA Cefepime HCl 1 gm/ Sodium 100 mls @ 200 mls/hr 03/25/19 06:00 03/31/19 05:38 Chloride IVPB 100 mls 0600,1800 DHARA Administration Vancomycin HCl 1 gm/ Device 200 mls @ 200 mls/hr 03/30/19 08:00 03/31/19 08: 07 IVPB 200 mls 0800,2000 DHARA Administration Ibuprofen 400 mg 03/28/19 14:00 03/29/19 15:09 Motrin PO 400 mg Q8HR DHARA Administration Morphine Sulfate 4 mg 03/27/19 17:21 03/30/19 12:56 Morphine SLOW IVP 4 mg Q4H PRN Administration Severe Pain (7-10) Ondansetron HCl 4 mg 03/24/19 21:04 03/26/19 18:20 Zofran Odt PO 4 mg Q6H PRN Administration Nausea/Vomiting Silver Sulfadiazine 0 gm 03/26/19 09:00 03/31/19 08:13 Silvadene TOP 1 applic DAILY DHARA Administration Sodium Chloride 10 ml 03/24/19 21:17 03/30/19 09:16 Flush - Normal Saline IVF 10 ml PRN PRN Administration Saline Flush Tramadol HCl 75 mg 03/24/19 21:15 03/29/19 17:07 Ultram PO 75 mg DAILYPRN PRN Administration Moderate Pain (4-6) - Exam General Appearance: NAD, awake alert Eye: PERRL, anicteric sclera ENT: normocephalic atraumatic, no oropharyngeal lesions Neck: supple, symmetric, no JVD, no thyromegaly Heart: RRR, no gallops, no rubs, normal peripheral pulses Respiratory: rales, rhonchi Respiratory - other findings: diminished in L base, CT in L chest wall Gastrointestinal: soft, non-distended, normal bowel sounds, no palpable masses Extremities: no cyanosis, 2+ LE edema Skin: normal turgor Neurological: cranial nerve grossly intact, no new deficit Musculoskeletal: generalized weakness Psychiatric: normal affect, A&O x 3 Hosp A/P (1) Empyema Code(s): J86.9 - PYOTHORAX WITHOUT FISTULA Status: Acute Plan: Continue L CT drainage, likely will remain in place for weeks given the volume of drainage, continue Cefepime/Vanc (2) ALPHONSE (acute kidney injury) Code(s): N17.9 - ACUTE KIDNEY FAILURE, UNSPECIFIED Status: Acute Plan: Continue low-volume IVF's, avoid nephrotoxic meds and limit contrast exposure (3) Abscess or cellulitis of chest wall Code(s): [id number] - Status: Acute (4) Pleural effusion Code(s): J90 - PLEURAL EFFUSION, NOT ELSEWHERE CLASSIFIED Status: Acute Plan: See above (5) Metastatic breast carcinoma Code(s): C50.919 - MALIGNANT NEOPLASM OF UNSP SITE OF UNSPECIFIED FEMALE BREAST Status: Chronic Plan: Palliative care, consider Hospice evaluation (6) Sepsis Code(s): A41.9 - SEPSIS, UNSPECIFIED ORGANISM Status: Acute - Plan plan discussed w/ family, continue antibiotics, PT/OT, marriage and family social worker, respiratory therapy, out of bed/ambulate, DVT proph w/SCDs Stable currently Decrease IVF NS 75ml/h Humidify O2 Continue Cefepime, renal dosed Vancomycin Incentive spirometry Trial Heriberto Pérez Mouthwash AM lab: BMP
[2019-03-31] MEDS ORDERED: Aluminum & Magnesium Hydroxide 60 ML, diphenhydrAMINE 150 MG, Lidocaine 2% Viscous Solu... SSW PRN (15:05)
[2019-03-31] MEDS: traMADol HCl 50 MG TAB PO PRN (16:22)
--- NOTE | 2019-03-31 19:02 | PRG ---
DATE OF SERVICE: 03/31/2019 SERVICE: Pulmonary Medicine. INTERVAL HISTORY: The patient is doing okay from respiratory standpoint. She is breathing comfortably. She has no chest discomfort, nausea, or vomiting outside of appropriate chest soreness from the thoracostomy tube. Otherwise, she had no events or no complaints overnight. Weakness is quite pronounced. She is fearful of getting out of bed because she is afraid she could dislodge some of these tubes. PHYSICAL EXAMINATION: VITAL SIGNS: Afebrile, pulse 108, blood pressure 154/68, respirations 22, and saturation 94% on 3 L nasal cannula. GENERAL: The patient is awake and alert, in no apparent distress. LUNGS: There is decent air entry on the left. There is good air entry on the right with no prolonged expiratory phase or wheezing. Rhonchi are present on the left. HEART: Normal rate and regular. ABDOMEN: Soft, nontender, and nondistended. Bowel sounds are positive. MUSCULOSKELETAL: No cyanosis or clubbing. No pitting in the bilateral lower extremities. NEUROLOGIC: Grossly nonfocal. LABORATORY DATA: Creatinine 1.12, BUN 32. Basic metabolic profile is otherwise unremarkable. MSSA is growing in the pleural broth x2. ASSESSMENT: 1. Acute hypoxic respiratory failure, resolving. 2. Sepsis without end-organ damage. 3. Empyema on the left, status post decortication, postop day #4. 4. Malignant pleural effusion on the left. 5. Hydropneumothorax ex vacuo in a trapped lung on the left. 6. Breast cancer, metastatic. 7. Acute kidney injury, resolving. DISCUSSION AND PLAN: We are faced with a fairly challenging scenario. I am going to place an infectious disease consultation to see whether or not there is any use for intrapleural antibiotic. Because we cannot re-expand this lung space, she is at high risk for recurrence of empyema. She is draining significant amounts of fluid on a daily basis. As soon as the chest tube is removed, she is likely to fill this space back up with malignant cells. When this goes under tension, she will become symptomatic once again. She will not be a good candidate for serial thoracenteses or repeat PleurX catheter placement. We may also need to entertain the possibility of using suppressive antibiotics through time. Her oncologist is telling us that her 2-year survival is close to 50%. As such, he is requesting we be as aggressive as possible. We will continue mobilizing the patient as much as tolerated. Pulmonary will continue to follow. Job ID: [id number]
[2019-03-31] MEDS ORDERED: Diabetic Tussin 200 MG/10 ML UDCUP PO PRN (20:15)
[2019-03-31 20:20] LABS: Vancomycin, Trough 36.3 ug/mL
[2019-03-31] MEDS ORDERED: Vancomycin HCl 1 GM in Premix Bag 1 BAG IVPB SCH (20:30)
[2019-03-31] MEDS: Phenergan/Codeine 10-6.25mg/5ml UDCUP PO PRN (22:03)
[2019-04-01] MEDS: Vancomycin HCl 1 GM in Premix Bag 1 BAG IVPB SCH (02:57)
[2019-04-01] MEDS: Sodium Chloride 0.9% 1,000 ML IV SCH ×2 (06:20→17:17)
[2019-04-01] MEDS: Cefepime 1 GM in Sodium Chloride 0.9% 100 ML IVPB SCH (07:59)
[2019-04-01 08:56] LABS: Vancomycin, Random 29.3 ug/mL (See Comment)
[2019-04-01] MEDS: guaiFENesin ER 600 MG TAB PO SCH ×4 (09:37→20:05)
[2019-04-01] MEDS: Silver Sulfadiazine 1% Cream 50 GM JAR TOP SCH (09:40)
[2019-04-01] MEDS: Ibuprofen 100 MG/5 ML UDCUP PO SCH ×2 (15:05→21:54)
[2019-04-01 20:47] LABS: Vancomycin, Trough 24.7 ug/mL
--- NOTE | 2019-04-01 21:33 | CON ---
DATE OF CONSULTATION: 04/01/2019 REASON FOR CONSULTATION: Pleural space infection following malignant pleural effusion drainage. HISTORY OF PRESENT ILLNESS: This is a 59-year-old, who has a history of breast cancer diagnosed in 2017, treated with chemo surgery and radiation therapy, and in December, she developed worsening dyspnea, a large left-sided pleural effusion with total lung collapse on the left side was identified. The patient had thoracentesis with 1800 mL of pleural fluid removed and pathology of the pleural fluid identified consistent with adenocarcinoma. The patient had a chest tube placed, which was recently removed, and after removal, the patient developed worsening dyspnea and Dr. Arias was consulted again on the case and she had a chest tube placed after the pleural fluid was found to be infected with Staphylococcus aureus. She had a chest CT completed, which showed left side chest tube with a left-sided hydropneumothorax, consolidation of left upper lobe and lower lobe, possible underlying mass, pleural thickening, and irregularity. There were edematous changes along the left chest wall and some subcutaneous air noted along the posterior left chest wall. The amount of pleural effusion had decreased. The pleural fluid had 42,000 wbc's with predominance of mature neutrophils and the pathology the second time around this time showed mostly inflammatory cells and no malignant cells identified. Oncology has been consulted, and she is currently on atezolizumab, which is a checkpoint inhibitor, as well as Abraxane. Currently, Ms. Noble is having some mild dyspnea. She denies any headaches. No visual symptoms, sore throat, odynophagia or dysphagia. She is anorectic. No abdominal pain. She has a Temple catheter in place and she has no joint pains. 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 The patient is receiving atezolizumab and Abraxane for chemotherapy, and the patient has also history of hypertension, knee arthroscopy , and uterine ablation. SOCIAL HISTORY: Nothing remarkable. Never smoked. FAMILY HISTORY: Noncontributory. ALLERGIES: PENICILLIN AND SULFA DRUGS WITH RASH; AZITHROMYCIN, MOSTLY GASTROINTESTINAL INTOLERANCE. CURRENT MEDICATIONS: 1. Tylenol. 2. Calcium. 3. Guaifenesin. 4. Motrin. 5. Morphine. 6. Zofran. 7. Phenergan. 8. Silvadene. 9. Vancomycin. PHYSICAL EXAMINATION: VITAL SIGNS: T-max 99.2, blood pressure 113/55, pulse 95, respirations 20, and O2 sat 93. SKIN: The skin exam shows the areas of hyperpigmentation and thickening of the dermis on the left side, which is a consequence of radiation therapy. There is a port which is accessed at this moment, and she has a Temple catheter and a chest tube on the left side. No lymphadenopathy. HEENT: Ocular movements are conjugate. Oral cavity normal. NECK: Supple. LUNGS: With diminished breath sounds in left hemithorax. The right side is clear. HEART: S1 and S2. Regular rate. No S3 or S4. ABDOMEN: Soft, not distended or tender. No bladder distention. EXTREMITIES: No joint inflammatory activity. Pulses are 1+ in dorsalis pedis. Plantar responses are flexor. Able to move all extremities. She has lymphedema in left upper extremity. NEUROLOGIC: Cognitive function appears to be intact. LABORATORY DATA: White cell count is down from 17 to 7.6, hemoglobin 9.2, and platelets 366. INR 1.2 and creatinine is up from 0.7 to 1.12. GFR was down from 86 to 50. Albumin 2.8, alkaline phosphatase 151, and AST 44. Urinalysis was normal. Microbiology, we have 2 samples from the pleural fluid with Staphylococcus aureus, which is methicillin sensitive strain. ASSESSMENT: Metastatic breast cancer, triple negative, currently on atezolizumab and Abraxane, and problems with management of her malignant left pleural effusion with a complication of the drainage procedure and Staphylococcus aureus empyema. The patient is not a candidate for decortication. The patient will be treated with cefazolin, adjusted for renal function, and if she develops loculation, she will need attempts at lysing the adhesions with fibrinolysis, continuation of antibiotic for a long period of time, probably at least 4 weeks, through using cefazolin, and follow up imaging studies and eventual removal of the chest tube when there is resolution of the inflammatory process and palliation of cancer mets Job ID: [id number] [facility]
[2019-04-01] MEDS: Phenergan/Codeine 10-6.25mg/5ml UDCUP PO PRN (21:54)
[2019-04-01] MEDS: CEFAZOLIN 2 GM in Premix Bag 1 BAG IVPB SCH (21:55)
[2019-04-02] MEDS: Phenergan/Codeine 10-6.25mg/5ml UDCUP PO PRN ×2 (02:11→22:24)
[2019-04-02] MEDS: Sodium Chloride 0.9% 1,000 ML IV SCH (02:12)
[2019-04-02] MEDS: CEFAZOLIN 2 GM in Premix Bag 1 BAG IVPB SCH ×3 (05:19→22:24)
[2019-04-02] MEDS: Ibuprofen 100 MG/5 ML UDCUP PO SCH ×3 (05:26→22:43)
[2019-04-02 09:43] LABS: Vancomycin, Random 21.2 ug/mL (See Comment)
[2019-04-02] MEDS: guaiFENesin ER 600 MG TAB PO SCH ×2 (10:44→20:09)
[2019-04-02] MEDS: Silver Sulfadiazine 1% Cream 50 GM JAR TOP SCH (15:26)
--- NOTE | 2019-04-02 17:52 | PDOC.HOSPP ---
- Subjective Encounter Date: 04/02/19 Encounter Time: 17:50 Subjective: f/u for L-sided malignant effusion/empyema with CT drainage on Ancef/ Vancomycin. Plan for protracted tx course and CT drainage. + coughing and not able to take Mucinex tabs without choking. - Objective Vital Signs & Weight: Vital Signs (12 hours) Temp Pulse Resp BP Pulse Ox 04/02/19 08:00 97.9 F 95 18 118/62 95 04/02/19 07:21 94 L Weight Admit Weight 255 lb Weight 255 lb I&O: 04/01/19 04/02/19 04/03/19 06:59 06:59 06:59 Intake Total 1400 9345 Output Total 1355 1790 Balance 45 7555 Result Diagrams: 03/29/19 02:09 03/31/19 04:30 Additional Labs: Microbiology 03/25/19 17:05 Pleural fluid Direct Acid Fast Bacilli Smear - Final 03/25/19 17:05 Pleural fluid Acid Fast Bacilli Smear - Final 03/25/19 17:05 Pleural fluid Body Fluid Culture - Final Staphylococcus aureus 03/24/19 19:00 Chest - Pending Bacterial Culture - Final Staphylococcus aureus 03/24/19 17:29 Venous blood - Right Hand Blood Culture - Final Coagulase Neg Staphylococcus 03/25/19 17:05 Pleural fluid Acid Fast Bacilli Culture - Preliminary Specimen has been received and culture in progress. No Growth to date. 03/24/19 17:29 Venous blood - Right Hand Blood Culture - Preliminary NO GROWTH AT 48 HOURS Laboratory Tests 03/24/19 03/25/19 03/25/19 17:28 04:56 04:56 WBC 17.3 H 15.0 H Estimated GFR (MDRD) 86 Vancomycin Trough Random Vancomycin 03/26/19 03/26/19 03/29/19 08:36 08:36 02:09 WBC 11.4 H Estimated GFR (MDRD) Greater than 90 53 Vancomycin Trough Random Vancomycin 03/29/19 03/29/19 02:09 15:44 WBC Estimated GFR (MDRD) Vancomycin Trough 32.3 H* Random Vancomycin 24.2 Hospitalist ROS - Medication Medications: Active Medications Generic Name Dose Route Start Last Admin Trade Name Freq PRN Reason Stop Dose Admin Acetaminophen 650 mg 03/24/19 21:04 03/29/19 17:08 Tylenol PO 650 mg Q4H PRN Administration Headache/Fever/Mild Pain (1-3) Al Hydroxide/Mg Hydroxide 60 0 ml 03/31/19 15:05 03/31/19 18:04 ml/ Diphenhydramine HCl 150 mg SSW 10 ml / Lidocaine HCl 60 ml/ PRN PRN Administration Nystatin 6,000,000 units Mouth Irritation Guaifenesin 600 mg 03/31/19 09:00 04/02/19 10:44 Mucinex PO Not Given Q12HR DHARA Sodium Chloride 1,000 mls @ 75 mls/hr 03/31/19 14:39 04/02/19 02:12 Normal Saline 0.9% IV 1,000 mls .[id number] DHARA Administration Cefazolin Sodium/Dextrose 2 gm 50 mls @ 200 mls/hr 04/01/19 22:00 04/02/19 15 :04 / Device IVPB 50 mls Q8HR DHARA Administration Ibuprofen 400 mg 03/28/19 14:00 04/02/19 15:27 Motrin PO 400 mg Q8HR DHARA Administration Morphine Sulfate 4 mg 03/27/19 17:21 03/30/19 12:56 Morphine SLOW IVP 4 mg Q4H PRN Administration Severe Pain (7-10) Ondansetron HCl 4 mg 03/24/19 21:04 03/26/19 18:20 Zofran Odt PO 4 mg Q6H PRN Administration Nausea/Vomiting Promethazine HCl/Codeine 5 ml 03/31/19 08:52 04/02/19 02:11 Phenergan/Codeine Syrup PO 5 ml Q4H PRN Administration Cough Silver Sulfadiazine 0 gm 03/26/19 09:00 04/02/19 15:26 Silvadene TOP 1 applic DAILY DHARA Administration Sodium Chloride 10 ml 03/24/19 21:17 04/02/19 15:06 Flush - Normal Saline IVF 10 ml PRN PRN Administration Saline Flush Tramadol HCl 75 mg 03/24/19 21:15 03/31/19 16:22 Ultram PO 75 mg DAILYPRN PRN Administration Moderate Pain (4-6) - Exam General Appearance: NAD, awake alert Eye: PERRL, anicteric sclera ENT: normocephalic atraumatic, no oropharyngeal lesions Neck: supple, symmetric, no JVD, no thyromegaly Heart: RRR, no murmur, no gallops, no rubs Respiratory: rhonchi Respiratory - other findings: diminished in L hemithorax, CT in place Gastrointestinal: soft, non-tender, non-distended, normal bowel sounds, no palpable masses Gastrointestinal - other findings: Temple with rod/clear urine Extremities: no cyanosis, 1+ LE edema Skin: normal turgor Skin - other findings: post-radiation skin changes on L upper chest/neck Neurological: cranial nerve grossly intact, no new deficit Musculoskeletal: normal tone Psychiatric: A&O x 3, flat affect Hosp A/P (1) Empyema Code(s): J86.9 - PYOTHORAX WITHOUT FISTULA Status: Acute Plan: Continue CT drainage, Ancef/Vancomycin, repeat pleural fluid studies in progress (2) ALPHONSE (acute kidney injury) Code(s): N17.9 - ACUTE KIDNEY FAILURE, UNSPECIFIED Status: Acute Plan: Improved with low-volume IVF's (3) Abscess or cellulitis of chest wall Code(s): [id number] - Status: Acute (4) Pleural effusion Code(s): J90 - PLEURAL EFFUSION, NOT ELSEWHERE CLASSIFIED Status: Acute Plan: See above (5) Metastatic breast carcinoma Code(s): C50.919 - MALIGNANT NEOPLASM OF UNSP SITE OF UNSPECIFIED FEMALE BREAST Status: Chronic (6) Sepsis Code(s): A41.9 - SEPSIS, UNSPECIFIED ORGANISM Status: Acute Plan: Resolved - Plan continue antibiotics, PT/OT, nephrology social worker, respiratory therapy, out of bed/ ambulate Stable currently Decrease IVF NS 50ml/h Humidify O2 prn Continue Ancef, renal dosed Vancomycin Incentive spirometry Trial Heriberto Pérez Mouthwash
[2019-04-02] MEDS ORDERED: Sodium Chloride 0.9% 1,000 ML IV SCH (17:55)
[2019-04-02] MEDS ORDERED: Diabetic Tussin 200 MG/10 ML UDCUP PO PRN (17:55)
--- NOTE | 2019-04-02 18:27 | PRG ---
DATE OF SERVICE: 04/02/2019 SERVICE: Pulmonary Medicine. INTERVAL HISTORY: The patient is doing okay from respiratory standpoint. She is breathing comfortably. There has been no interval change to her condition otherwise. Her strength remains quite weak. That being said, energy seems to be improving slightly. PHYSICAL EXAMINATION: VITAL SIGNS: Afebrile, pulse 95, blood pressure 118/62, respirations 18, and saturation 95% on 2 L nasal cannula. GENERAL: The patient is awake and alert, in no apparent distress. LUNGS: Decent air entry on the right. There is no prolonged expiratory phase or wheezing. There is decreased air entry on the left. HEART: Normal rate and regular. ABDOMEN: Soft, nontender, and nondistended. Bowel sounds are positive. MUSCULOSKELETAL: No cyanosis or clubbing. There is no pitting in the bilateral lower extremities. NEUROLOGIC: Grossly nonfocal. LABORATORY DATA: Vancomycin is 21.2. ASSESSMENT: 1. Acute hypoxic respiratory failure, resolving. 2. Sepsis without end-organ damage. 3. Empyema on the left, status post decortication, postop day #6. 4. Malignant pleural effusion on the left. 5. 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 6. Breast cancer, metastatic. 7. Acute kidney injury, resolved. DISCUSSION AND PLAN: At this point, I had a conversation with Dr. Stern. There is no indication for intrapleural antibiotics as it actually leaches out of that space quite quickly and you get below bactericidal AGGIE quickly. As such, we are looking at taking the tube out as early as tomorrow and providing the patient with antibiotics with good penetration into that space. This will be continued for likely 6 to 8 weeks if not longer. If this can be done with an oral agent, we will. Otherwise, we will need to put her in a PICC line consultation and work on getting her out of the hospital. We will continue our mobilization efforts through time. Hopefully by the end of the week, we will be ready to get her out of the hospital. Job ID: [id number]
[2019-04-02 19:26] LABS: RBC Count-Automated (BF) 2771 /cumm; WBC/Nucleated-Auto (BF) 337 uL
[2019-04-02 19:30] LABS: BF Color Red; Body Fluid Source Thoracentesis Fluid; Clarity Cloudy/Turbid (Clear); Tube # EDTA
[2019-04-02 20:03] LABS: BF Segmented Neutrophils 97 %; Cell Count Non Hematic 3 %
[2019-04-02] MEDS: Vancomycin HCl 1 GM in Premix Bag 1 BAG IVPB SCH (20:10)
[2019-04-02] MEDS: traMADol HCl 50 MG TAB PO PRN (20:16)
[2019-04-03] MEDS: Ibuprofen 100 MG/5 ML UDCUP PO SCH ×3 (06:11→21:22)
[2019-04-03] MEDS: CEFAZOLIN 2 GM in Premix Bag 1 BAG IVPB SCH ×3 (06:28→21:16)
[2019-04-03] MEDS: Silver Sulfadiazine 1% Cream 50 GM JAR TOP SCH (09:10)
[2019-04-03] MEDS: guaiFENesin ER 600 MG TAB PO SCH ×2 (09:10→21:20)
[2019-04-03] MEDS ORDERED: Furosemide 20 MG/2 ML VIAL SLOW IVP SCH (10:30)
--- NOTE | 2019-04-03 13:05 | PRG ---
DATE OF SERVICE: 04/03/2019 SERVICE: Pulmonary Medicine. INTERVAL HISTORY: The patient is doing okay from Respiratory standpoint. She is able to get up out of bed to the bedside commode. This required two people to assist her, but after that, tired her out to the point where she had to rest there for a period of time. Then, getting back to bed was quite an ordeal. She had horrendous dyspnea. Ultimately, she settled back down, but it took 10 minutes. I caught her right at that moment. She is a little diaphoretic. Her respirations are starting to settle down slightly. She is not having any fevers or chills. There are no significant overnight events. PHYSICAL EXAMINATION: VITAL SIGNS: Afebrile, pulse 115, blood pressure 118/80, respirations are 18, and saturation 92% on 2 L nasal cannula. GENERAL: The patient is awake and alert, in no apparent distress. LUNGS: Once again, we have some minimal dependent crackles present on the right. There are some rhonchi on the left. There is decreased air entry on the left. HEART: Normal rate and regular. ABDOMEN: Soft, nontender, and nondistended. Bowel sounds are positive. MUSCULOSKELETAL: No cyanosis or clubbing. Trace pitting edema start to show back up. LABORATORY DATA: Repeat evaluation of the fluid demonstrated an LDH of 1032, glucose 36, and neutrophil count is still elevated at 97. ASSESSMENT: 1. Acute hypoxic respiratory failure, resolving. 2. Sepsis without end-organ damage. 3. Empyema on the left, status post decortication, postoperative day #6. 4. Malignant pleural effusion on the left. 5. Hydropneumothorax ex vacuo and trapped lung on the left. 6. Breast cancer, metastatic. 7. Acute kidney injury, resolved. DISCUSSION AND PLAN: I will give the patient dose of Lasix now and tomorrow morning. We will likely remove the chest tube today. We are going to be putting her on appropriate antibiotic coverage with good penetration into this space if possible for a protracted course. Pulmonary/Critical Care will continue to follow along while the patient remains in-house. Ultimately, the patient does not have enough functional reserve to get additional chemotherapy in her current condition. Additionally, I do not know that we are going to be able to sterilize this space. As such, if the patient has any additional setbacks along the way, Hospice will be our only approach moving forward. Job ID: [id number]
--- NOTE | 2019-04-03 17:17 | PDOC.HOSPP ---
- Subjective Encounter Date: 04/03/19 Encounter Time: 17:15 Subjective: f/u for L-sided malignant effusion/empyema s/p CT removal today. Remains on Ancef/Vancomycin. Nursing reports pt very depressed as she is unlikely unable to continue chemotherapy due to physical decline. - Objective Vital Signs & Weight: Vital Signs (12 hours) Temp Pulse Resp BP Pulse Ox 04/03/19 16:27 98.6 F 96 20 118/69 95 04/03/19 09:18 115 H 30 H 94 L 04/03/19 08:00 94 L 04/03/19 07:59 98.4 F 98 18 118/80 92 L 04/03/19 07:52 92 L Weight Admit Weight 255 lb Weight 255 lb I&O: 04/02/19 04/03/19 04/04/19 06:59 06:59 06:59 Intake Total 9345 1300 Output Total 1790 990 Balance 7555 310 Result Diagrams: 03/29/19 02:09 03/31/19 04:30 Additional Labs: Microbiology 03/25/19 17:05 Pleural fluid Direct Acid Fast Bacilli Smear - Final 03/25/19 17:05 Pleural fluid Acid Fast Bacilli Smear - Final 03/25/19 17:05 Pleural fluid Body Fluid Culture - Final Staphylococcus aureus 03/24/19 19:00 Chest - Pending Bacterial Culture - Final Staphylococcus aureus 03/24/19 17:29 Venous blood - Right Hand Blood Culture - Final Coagulase Neg Staphylococcus 03/25/19 17:05 Pleural fluid Acid Fast Bacilli Culture - Preliminary Specimen has been received and culture in progress. No Growth to date. 03/24/19 17:29 Venous blood - Right Hand Blood Culture - Preliminary NO GROWTH AT 48 HOURS Laboratory Tests 03/24/19 03/25/19 03/25/19 17:28 04:56 04:56 WBC 17.3 H 15.0 H Estimated GFR (MDRD) 86 Vancomycin Trough Random Vancomycin 03/26/19 03/26/19 03/29/19 08:36 08:36 02:09 WBC 11.4 H Estimated GFR (MDRD) Greater than 90 53 Vancomycin Trough Random Vancomycin 03/29/19 03/29/19 02:09 15:44 WBC Estimated GFR (MDRD) Vancomycin Trough 32.3 H* Random Vancomycin 24.2 Hospitalist ROS - Medication Medications: Active Medications Generic Name Dose Route Start Last Admin Trade Name Freq PRN Reason Stop Dose Admin Acetaminophen 650 mg 03/24/19 21:04 03/29/19 17:08 Tylenol PO 650 mg Q4H PRN Administration Headache/Fever/Mild Pain (1-3) Al Hydroxide/Mg Hydroxide 60 0 ml 03/31/19 15:05 03/31/19 18:04 ml/ Diphenhydramine HCl 150 mg SSW 10 ml / Lidocaine HCl 60 ml/ PRN PRN Administration Nystatin 6,000,000 units Mouth Irritation Guaifenesin 600 mg 03/31/19 09:00 04/03/19 09:10 Mucinex PO Not Given Q12HR DHARA Cefazolin Sodium/Dextrose 2 gm 50 mls @ 200 mls/hr 04/01/19 22:00 04/03/19 13 :18 / Device IVPB 50 mls Q8HR DHARA Administration Vancomycin HCl 1 gm/ Device 200 mls @ 200 mls/hr 04/02/19 21:00 04/02/19 20: 10 IVPB 200 mls Q24HR DHARA Administration Ibuprofen 400 mg 03/28/19 14:00 04/03/19 13:23 Motrin PO Not Given Q8HR DHARA Morphine Sulfate 4 mg 03/27/19 17:21 03/30/19 12:56 Morphine SLOW IVP 4 mg Q4H PRN Administration Severe Pain (7-10) Ondansetron HCl 4 mg 03/24/19 21:04 03/26/19 18:20 Zofran Odt PO 4 mg Q6H PRN Administration Nausea/Vomiting Promethazine HCl/Codeine 5 ml 03/31/19 08:52 04/02/19 22:24 Phenergan/Codeine Syrup PO 5 ml Q4H PRN Administration Cough Silver Sulfadiazine 0 gm 03/26/19 09:00 04/03/19 09:10 Silvadene TOP 1 applic DAILY DHARA Administration Sodium Chloride 10 ml 03/24/19 21:17 04/02/19 15:06 Flush - Normal Saline IVF 10 ml PRN PRN Administration Saline Flush Tramadol HCl 75 mg 03/24/19 21:15 04/02/19 20:16 Ultram PO 75 mg DAILYPRN PRN Administration Moderate Pain (4-6) - Exam General Appearance: NAD, awake alert Eye: PERRL, anicteric sclera ENT: normocephalic atraumatic, no oropharyngeal lesions Neck: supple, symmetric, no JVD, no thyromegaly Heart: RRR, no murmur, no gallops, no rubs, normal peripheral pulses Respiratory: no wheezes, no rales Respiratory - other findings: diminished in L base Gastrointestinal: soft, non-tender, non-distended, normal bowel sounds, no palpable masses Extremities: no cyanosis, 1+ LE edema Skin: normal turgor Neurological: cranial nerve grossly intact, no new deficit Musculoskeletal: normal tone, generalized weakness Psychiatric: A&O x 3, flat affect Hosp A/P (1) Empyema Code(s): J86.9 - PYOTHORAX WITHOUT FISTULA Status: Acute Plan: s/p CT with removal today, plan for intermediate IV abx and monitor for recurrence (2) ALPHONSE (acute kidney injury) Code(s): N17.9 - ACUTE KIDNEY FAILURE, UNSPECIFIED Status: Acute Plan: Avoid nephrotoxic meds and limit contrast exposure, serial creatinine (3) Abscess or cellulitis of chest wall Code(s): LGQ6906 - Status: Acute (4) Pleural effusion Code(s): J90 - PLEURAL EFFUSION, NOT ELSEWHERE CLASSIFIED Status: Acute (5) Metastatic breast carcinoma Code(s): C50.919 - MALIGNANT NEOPLASM OF UNSP SITE OF UNSPECIFIED FEMALE BREAST Status: Chronic Plan: Likely will be unable to physically handle remaining chemotx cycles due to poor performance status, consider Palliative/Hospice options (6) Sepsis Code(s): A41.9 - SEPSIS, UNSPECIFIED ORGANISM Status: Acute - Plan plan discussed w/ family, continue antibiotics, 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
[2019-04-03] MEDS: Megestrol Acetate 40 MG TAB PO SCH (21:20)
[2019-04-03] MEDS: Vancomycin HCl 1 GM in Premix Bag 1 BAG IVPB SCH (22:20)
[2019-04-04] MEDS: CEFAZOLIN 2 GM in Premix Bag 1 BAG IVPB SCH ×3 (05:16→22:10)
[2019-04-04] MEDS: Ibuprofen 100 MG/5 ML UDCUP PO SCH ×3 (05:20→21:52)
[2019-04-04] MEDS: guaiFENesin ER 600 MG TAB PO SCH ×2 (11:01→21:51)
[2019-04-04] MEDS: Megestrol Acetate 40 MG TAB PO SCH ×2 (11:02→20:44)
--- NOTE | 2019-04-04 14:29 | PRG ---
DATE OF SERVICE: 04/04/2019 SERVICE: Pulmonary Medicine. INTERVAL HISTORY: The patient is doing fine from respiratory standpoint. Breathing comfortably. Denies any chest discomfort. Her breathing is very challenging when she lies on the left side. That being said, when she lies on her left, she does pretty well. Her appetite is poor. They are requesting an appetite stimulant as she has complete aversion for food. Additionally, at this point, she does not have the strength to go home directly and will likely need an interim stay at the [facility] facility. PHYSICAL EXAMINATION: VITAL SIGNS: Afebrile, pulse 96, blood pressure 117/69, respirations 20, and saturation 93% on 2 L nasal cannula. GENERAL: The patient is awake and alert, in no apparent distress. LUNGS: Decent air entry. There is no prolonged expiratory phase or wheezing present. HEART: Normal rate, regular. ABDOMEN: Soft, nontender, nondistended. Bowel sounds are positive. MUSCULOSKELETAL: No cyanosis or clubbing. The pitting edema of the lower extremities is better. She has a little bit of pitting in the left upper extremity. NEUROLOGIC: Grossly nonfocal. ASSESSMENT: 1. Chronic hypoxic respiratory failure. 2. Sepsis without end-organ damage, resolved. 3. Empyema on the left, status post decortication with subsequent chest tube removal. 4. Malignant pleural effusion on the left. 5. Hydropneumothorax ex vacuo and trapped lung on the left. 6. Breast cancer, metastatic. 7. Acute kidney injury, resolved. DISCUSSION AND PLAN: I will repeat a basic metabolic profile and CBC tomorrow. We will also get a magnesium and phosphorus. This will be a one day order. After that, will return to a lab holiday. I will ask the nurses not to turn onto her left side as she has a difficult time breathing in that position. We will give her an appetite stimulant. The patient and her are aware that this could increase her incidence of pulmonary embolism/clot. We will put a Case Management consultation in to consider placement options. She would not tolerate rehabilitation. As such, her only option moving forward is strictly a [facility] facility. Pulmonary will continue to follow, intermittently while the patient remains in the hospital. If she gets into trouble sooner, please give us a phone call. Job ID: [id number] [facility]
--- NOTE | 2019-04-04 17:06 | PDOC.HOSPP ---
- Subjective Encounter Date: 04/04/19 Encounter Time: 16:20 Subjective: f/u for malignant L-sided effusion s/p CT removal on current Ancef/Vancomycin. Feels weak, poor appetite, stood briefly bedside with PT. - Objective Vital Signs & Weight: Vital Signs (12 hours) Temp Pulse Pulse Pulse Resp BP BP 04/04/19 12:54 96 104 H 116/70 109/72 04/04/19 08:37 98.3 F 96 20 BP Pulse Ox Pulse Ox Pulse Ox Pulse Ox 04/04/19 12:54 93 L 95 95 04/04/19 08:37 117/69 93 L Weight Admit Weight 255 lb Weight 255 lb I&O: 04/03/19 04/04/19 04/05/19 06:59 06:59 06:59 Intake Total 1300 1000 Output Total 990 900 Balance 310 100 Result Diagrams: 03/29/19 02:09 03/31/19 04:30 Additional Labs: Microbiology 03/25/19 17:05 Pleural fluid Direct Acid Fast Bacilli Smear - Final 03/25/19 17:05 Pleural fluid Acid Fast Bacilli Smear - Final 03/25/19 17:05 Pleural fluid Body Fluid Culture - Final Staphylococcus aureus 03/24/19 19:00 Chest - Pending Bacterial Culture - Final Staphylococcus aureus 03/24/19 17:29 Venous blood - Right Hand Blood Culture - Final Coagulase Neg Staphylococcus 03/25/19 17:05 Pleural fluid Acid Fast Bacilli Culture - Preliminary Specimen has been received and culture in progress. No Growth to date. 03/24/19 17:29 Venous blood - Right Hand Blood Culture - Preliminary NO GROWTH AT 48 HOURS Laboratory Tests 03/24/19 03/25/19 03/25/19 17:28 04:56 04:56 WBC 17.3 H 15.0 H Estimated GFR (MDRD) 86 Vancomycin Trough Random Vancomycin 03/26/19 03/26/19 03/29/19 08:36 08:36 02:09 WBC 11.4 H Estimated GFR (MDRD) Greater than 90 53 Vancomycin Trough Random Vancomycin 03/29/19 03/29/19 02:09 15:44 WBC Estimated GFR (MDRD) Vancomycin Trough 32.3 H* Random Vancomycin 24.2 Hospitalist ROS - Medication Medications: Active Medications Generic Name Dose Route Start Last Admin Trade Name Freq PRN Reason Stop Dose Admin Acetaminophen 650 mg 03/24/19 21:04 03/29/19 17:08 Tylenol PO 650 mg Q4H PRN Administration Headache/Fever/Mild Pain (1-3) Al Hydroxide/Mg Hydroxide 60 0 ml 03/31/19 15:05 03/31/19 18:04 ml/ Diphenhydramine HCl 150 mg SSW 10 ml / Lidocaine HCl 60 ml/ PRN PRN Administration Nystatin 6,000,000 units Mouth Irritation Guaifenesin 600 mg 03/31/19 09:00 04/04/19 11:01 Mucinex PO Not Given Q12HR DHARA Cefazolin Sodium/Dextrose 2 gm 50 mls @ 200 mls/hr 04/01/19 22:00 04/04/19 15 :00 / Device IVPB 50 mls Q8HR DHARA Administration Vancomycin HCl 1 gm/ Device 200 mls @ 200 mls/hr 04/02/19 21:00 04/03/19 22: 20 IVPB 200 mls Q24HR DHARA Administration Ibuprofen 400 mg 03/28/19 14:00 04/04/19 15:09 Motrin PO Not Given Q8HR DHARA Megestrol Acetate 40 mg 04/03/19 21:00 04/04/19 11:02 Megace PO Not Given BID [facility] Morphine Sulfate 4 mg 03/27/19 17:21 03/30/19 12:56 Morphine SLOW IVP 4 mg Q4H PRN Administration Severe Pain (7-10) Ondansetron HCl 4 mg 03/24/19 21:04 03/26/19 18:20 Zofran Odt PO 4 mg Q6H PRN Administration Nausea/Vomiting Promethazine HCl/Codeine 5 ml 03/31/19 08:52 04/02/19 22:24 Phenergan/Codeine Syrup PO 5 ml Q4H PRN Administration Cough Silver Sulfadiazine 0 gm 03/26/19 09:00 04/03/19 09:10 Silvadene TOP 1 applic DAILY DHARA Administration Sodium Chloride 10 ml 03/24/19 21:17 04/04/19 15:30 Flush - Normal Saline IVF 10 ml PRN PRN Administration Saline Flush - Exam General Appearance: NAD, awake alert Eye: PERRL, anicteric sclera ENT: normocephalic atraumatic, no oropharyngeal lesions Neck: supple, symmetric, no JVD, no thyromegaly Heart: RRR, no murmur, no gallops, no rubs, normal peripheral pulses Respiratory: CTAB, no wheezes, no rales, rhonchi Gastrointestinal: soft, non-tender, non-distended, normal bowel sounds, no palpable masses Extremities: 1+ LE edema Extremities - other findings: + UE edema bilat Skin: normal turgor Neurological: cranial nerve grossly intact, no new deficit Musculoskeletal: normal tone, generalized weakness Psychiatric: A&O x 3, flat affect Hosp A/P (1) Empyema Code(s): J86.9 - PYOTHORAX WITHOUT FISTULA Status: Acute Plan: s/p CT removal 04/03/19, continue Ancef/Vancomycin (2) ALPHONSE (acute kidney injury) Code(s): N17.9 - ACUTE KIDNEY FAILURE, UNSPECIFIED Status: Acute Plan: Improved (3) Abscess or cellulitis of chest wall Code(s): WKQ0775 - Status: Acute (4) Pleural effusion Code(s): J90 - PLEURAL EFFUSION, NOT ELSEWHERE CLASSIFIED Status: Acute Plan: s/p CT removal 04/03/19, likely will recur (5) Metastatic breast carcinoma Code(s): C50.919 - MALIGNANT NEOPLASM OF UNSP SITE OF UNSPECIFIED FEMALE BREAST Status: Chronic Plan: Poor physical condition and likely unable to continue chemotx given performance status currently (6) Sepsis Code(s): A41.9 - SEPSIS, UNSPECIFIED ORGANISM Status: Acute - Plan plan discussed w/ family, continue antibiotics, 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
[2019-04-04] MEDS: Silver Sulfadiazine 1% Cream 50 GM JAR TOP SCH (18:00)
--- NOTE | 2019-04-04 18:40 | PRG ---
DATE OF SERVICE: 04/04/2019 SUBJECTIVE: Chest tubes have been removed. She is mostly drinking fluids. Still feels quite a bit of tightness in her anterior chest skin area from the radiation therapy related changes. No vomiting. No diarrhea. No abdominal pain. OBJECTIVE: VITAL SIGNS: Temperature max 98.6, blood pressure 109/72, pulse 96, respirations 20, O2 saturation 93%, which is fairly stable. GENERAL: Chronically ill appearing, in no acute distress. LUNGS: Diminished breath sounds in the left hemithorax, right side normal. HEART: S1 and S2. Diminished heart sounds. ABDOMEN: Soft, not distended. EXTREMITIES: Able to move extremities, but diffusely weak. Cognitive function appears to be intact. LABORATORY DATA: Sodium 141, creatinine 1.12 which is a little bit higher than baseline. White cell count is down from 17 to 7.6, hemoglobin 9.2, platelets 366 which represent significant improvement. Repeat pleural fluid cultures are thus far negative. ASSESSMENT AND DISCUSSION: Triple negative metastatic breast cancer, currently on Abraxane and atezolizumab, and complication of malignant left pleural effusion management with superimposed Staphylococcus aureus, methicillin-sensitive Staphylococcus aureus infection. The patient had a decortication by Dr. Nye and the plan now is after removal of chest tubes to continue antimicrobial therapy with cefazolin through the port. The end date of therapy at the end of April. Monitor weekly labs including CBC, C-reactive protein, comprehensive metabolic panel. I discussed the potential adverse reactions of the medication with the patient. The endpoint will be the laboratory markers, maybe follow up imaging studies. Job ID: [id number]
[2019-04-04 20:47] LABS: Vancomycin, Trough 29.2 ug/mL
[2019-04-05 05:03] LABS: #Eosinphils 0.3 thou/uL (0.0-0.7); #Lymphocytes 0.9 thou/uL (1.20-3.40); #Neutrophils 4.9 thou/uL (1.40-6.50); %Basophils 0.5 % (0.0-1.0); %Eosinophils 4.1 % (0.0-10.0); %Monocytes 13.8 % (0.0-10.0); %Neutrophils 69.6 % (42.0-75.0); Hemoglobin 9.7 g/dL (12.0-16.0); Mean Corpuscular HGB CONC 31.6 g/dL (32.0-36.0); Mean Corpuscular Hemoglobin 25.2 pg (27.0-31.0); Mean Corpuscular Volume 79.6 fL (78.0-98.0); Mean Platelet Volume 7.6 fL (7.4-10.4); Platelet Count 390 thou/uL (130-400); RBC Distribution Width 20.6 % (11.5-14.5); Red Blood Cell (RBC) Count 3.84 mill/uL (4.20-5.40)
[2019-04-05 05:23] LABS: Anion Gap 12 mmol/L (10-20); BUN (Urea Nitrogen) 40 mg/dL (9.8-20.1); Calc. Creatinine Clearance 69 mL/min (70-130); Calcium 8.5 mg/dL (7.8-10.44); Carbon Dioxide 22 mmol/L (22-29); Chloride 111 mmol/L (98-107); Estimated GFR-MDRD 33; Glucose 94 mg/dL (70-105); Magnesium 2.8 mg/dL (1.6-2.6); Phosphorus 4.2 mg/dL (2.3-4.7); Potassium 3.9 mmol/L (3.5-5.1); Sodium 141 mmol/L (136-145)
[2019-04-05] MEDS: CEFAZOLIN 2 GM in Premix Bag 1 BAG IVPB SCH ×3 (05:34→22:20)
[2019-04-05] MEDS: Ibuprofen 100 MG/5 ML UDCUP PO SCH (05:38)
[2019-04-05] MEDS ORDERED: Senokot S 8.6-50 MG TAB PO PRN (07:53)
[2019-04-05] MEDS ORDERED: Loratadine 10 MG TAB PO PRN (07:53)
[2019-04-05] MEDS ORDERED: HYDROcodone/Acetaminophen 5/325 mg Tablet PO PRN (07:53)
[2019-04-05] MEDS ORDERED: Bisacodyl 10 MG SUPP PR PRN (07:53)
[2019-04-05] MEDS ORDERED: Artificial Tears 18 DROP/0.9 ML EA EYE PRN (07:53)
[2019-04-05] MEDS ORDERED: Loperamide HCl 2 MG CAP PO PRN (07:53)
[2019-04-05] MEDS ORDERED: hydrALAZINE 20 MG/ML VIAL SLOW IVP PRN (07:53)
[2019-04-05] MEDS ORDERED: Sodium Chloride 0.65% Nasal 44 ML BOT EA NARE PRN (07:53)
[2019-04-05] MEDS: Silver Sulfadiazine 1% Cream 50 GM JAR TOP SCH (09:01)
[2019-04-05] MEDS: Megestrol Acetate 40 MG TAB PO SCH ×2 (09:03→21:00)
[2019-04-05] MEDS: guaiFENesin ER 600 MG TAB PO SCH ×2 (09:03→21:00)
--- NOTE | 2019-04-05 10:16 | PDOC.HOSPP ---
- Subjective Encounter Date: 04/05/19 Encounter Time: 07:00 Subjective: pt is very weak, no overnight event, denies pain, has dyspnea with exertion, had good BM this morning - Objective Vital Signs & Weight: Vital Signs (12 hours) Temp Pulse Resp BP Pulse Ox 04/05/19 08:45 97.9 F 100 22 H 118/63 92 L Weight Admit Weight 255 lb Weight 255 lb I&O: 04/04/19 04/05/19 04/06/19 06:59 06:59 06:59 Intake Total 1000 590 Output Total 900 660 Balance 100 -70 Result Diagrams: 04/05/19 04:52 04/05/19 04:52 Hospitalist ROS - Review of Systems Constitutional: reports: weakness, malaise. denies: fever, chills, sweats, other ENT: denies: ear pain, ear discharge, nose pain, nose discharge, nose congestion , mouth pain, mouth swelling, throat pain, throat swelling, other Respiratory: reports: shortness of breath, SOB with excertion. denies: cough, dry, hemoptysis, pleuritic pain, sputum, wheezing, other Cardiovascular: denies: chest pain, palpitations, orthopnea, paroxysmal noc. dyspnea, edema, light headedness, other Gastrointestinal: denies: nausea, vomiting, abdominal pain, diarrhea, constipation, melena, hematochezia, other Genitourinary: denies: dysuria, frequency, incontinence, hematuria, retention, other Musculoskeletal: denies: neck pain, shoulder pain, arm pain, back pain, hand pain, leg pain, foot pain, other Skin: denies: rash, lesions, kezia, bruising, other - Medication Medications: Active Medications Generic Name Dose Route Start Last Admin Trade Name Freq PRN Reason Stop Dose Admin Acetaminophen 650 mg 03/24/19 21:04 03/29/19 17:08 Tylenol PO 650 mg Q4H PRN Administration Headache/Fever/Mild Pain (1-3) Al Hydroxide/Mg Hydroxide 60 0 ml 03/31/19 15:05 03/31/19 18:04 ml/ Diphenhydramine HCl 150 mg SSW 10 ml / Lidocaine HCl 60 ml/ PRN PRN Administration Nystatin 6,000,000 units Mouth Irritation Guaifenesin 600 mg 03/31/19 09:00 04/05/19 09:03 Mucinex PO Not Given Q12HR DHARA Cefazolin Sodium/Dextrose 2 gm 50 mls @ 200 mls/hr 04/01/19 22:00 04/05/19 05 :34 / Device IVPB 50 mls Q8HR DHARA Administration Megestrol Acetate 40 mg 04/03/19 21:00 04/05/19 09:03 Megace PO Not Given BID DHARA Morphine Sulfate 4 mg 03/27/19 17:21 03/30/19 12:56 Morphine SLOW IVP 4 mg Q4H PRN Administration Severe Pain (7-10) Ondansetron HCl 4 mg 03/24/19 21:04 03/26/19 18:20 Zofran Odt PO 4 mg Q6H PRN Administration Nausea/Vomiting Promethazine HCl/Codeine 5 ml 03/31/19 08:52 04/02/19 22:24 Phenergan/Codeine Syrup PO 5 ml Q4H PRN Administration Cough Silver Sulfadiazine 0 gm 03/26/19 09:00 04/05/19 09:01 Silvadene TOP 1 applic DAILY DHARA Administration Sodium Chloride 10 ml 03/24/19 21:17 04/04/19 15:30 Flush - Normal Saline IVF 10 ml PRN PRN Administration Saline Flush - Exam General Appearance: NAD Eye: PERRL, anicteric sclera ENT: normocephalic atraumatic, no oropharyngeal lesions, moist mucosa Neck: supple, symmetric, no JVD, no thyromegaly, no lymphadenopathy Heart: RRR, no murmur, no gallops, no rubs Respiratory: CTAB, no wheezes, no rales, no ronchi Respiratory - other findings: reduced air entry at base Gastrointestinal: soft, non-tender, non-distended, normal bowel sounds Extremities: no cyanosis, no clubbing Skin: normal turgor, no lesions Neurological: no weakness, no focal deficits Musculoskeletal: normal tone, generalized weakness Psychiatric: normal affect, normal behavior Hosp A/P (1) ALPHONSE (acute kidney injury) Code(s): N17.9 - ACUTE KIDNEY FAILURE, UNSPECIFIED Status: Acute (2) Empyema Code(s): J86.9 - PYOTHORAX WITHOUT FISTULA Status: Acute Plan: s/p pleural effusion complicated with MSSA (3) Sepsis Code(s): A41.9 - SEPSIS, UNSPECIFIED ORGANISM Status: Acute Qualifiers: Sepsis type: methicillin susceptible Staphylococcus aureus Acute respiratory failure type: with hypoxia Severe sepsis shock status: without septic shock (4) Metastatic breast carcinoma Code(s): C50.919 - MALIGNANT NEOPLASM OF UNSP SITE OF UNSPECIFIED FEMALE BREAST Status: Chronic - Plan old records reviewed/req, continue antibiotics, 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
--- NOTE | 2019-04-05 12:28 | PRG ---
DATE OF SERVICE: 04/05/2019 SUBJECTIVE: Yenni Noble is status post decortication. She is doing well. No pain. No shortness of breath. OBJECTIVE: VITAL SIGNS: Saturations are 90% on 2 L, respirations 22, temperature 97, pulse 100, blood pressure 108/63. CHEST: No wheezing or crackles. CARDIAC: Normal S1 and S2. No gallops. ABDOMEN: No masses. LABORATORY DATA: Creatinine is 1.62. ASSESSMENT: Staph aureus empyema, status post decortication; breast cancer; pleural effusion. PLAN: Continue antibiotics as per Infectious Disease. PT, supportive care. We will follow. Job ID: [id number]
[2019-04-05] MEDS ORDERED: Vancomycin HCl 1 GM in Premix Bag 1 BAG IVPB SCH (21:00)
[2019-04-05] MEDS ORDERED: Megestrol Acetate 800 MG/20 ML UDCUP PO SCH (21:45)
[2019-04-06] MEDS: CEFAZOLIN 2 GM in Premix Bag 1 BAG IVPB SCH ×2 (05:28→17:51)
[2019-04-06 07:47] LABS: Hemoglobin 9.4 g/dL (12.0-16.0); Mean Corpuscular HGB CONC 31.2 g/dL (32.0-36.0); Mean Corpuscular Hemoglobin 24.4 pg (27.0-31.0); Mean Corpuscular Volume 78.1 fL (78.0-98.0); Mean Platelet Volume 7.3 fL (7.4-10.4); Platelet Count 347 thou/uL (130-400); Red Blood Cell (RBC) Count 3.87 mill/uL (4.20-5.40); White Blood Cell (WBC) Count 6.5 thou/uL (4.8-10.8)
[2019-04-06 08:05] LABS: Anion Gap 13 mmol/L (10-20); BUN (Urea Nitrogen) 49 mg/dL (9.8-20.1); CRP (Inflammatory) 5.77 mg/dL (= or < 0.5); Calc. Creatinine Clearance 64 mL/min (70-130); Calcium 8.3 mg/dL (7.8-10.44); Carbon Dioxide 21 mmol/L (22-29); Chloride 113 mmol/L (98-107); Estimated GFR-MDRD 30; Glucose 90 mg/dL (70-105); Sodium 143 mmol/L (136-145)
[2019-04-06 08:15] LABS: Band 2 % (5-11); Eosinophils 7 % (0-10); Hypochromia SLIGHT = 6-15 cells (100X) (0-5/hpf); Lymphocytes 7 % (21-51); MDiff Complete? YES; Monocytes 19 % (0-10); Neutrophil 62 % (42-75); Platelet Morphology Comment Appears Adequate; Reactive Lymphocytes 1 % (0-10)
--- NOTE | 2019-04-06 09:38 | PDOC.HOSPP ---
- Subjective Encounter Date: 04/06/19 Encounter Time: 07:00 Subjective: Patient seen and examined. No new complaints. No overnight events has poor po intake and reduced urine output - Objective Vital Signs & Weight: Vital Signs (12 hours) Temp Pulse Resp BP Pulse Ox 04/06/19 07:41 97.8 F 98 22 H 94/55 L 95 04/06/19 06:20 96 24 H 04/06/19 02:08 89 16 95 04/05/19 22:42 93 16 96 Weight Admit Weight 255 lb Weight 255 lb I&O: 04/05/19 04/06/19 04/07/19 06:59 06:59 06:59 Intake Total 590 240 Output Total 660 375 Balance -70 -135 Result Diagrams: 04/06/19 07:30 04/06/19 07:30 Hospitalist ROS - Review of Systems Constitutional: reports: weakness, malaise. denies: fever, chills, sweats, other ENT: denies: ear pain, ear discharge, nose pain, nose discharge, nose congestion , mouth pain, mouth swelling, throat pain, throat swelling, other Respiratory: reports: cough, shortness of breath, SOB with excertion. denies: dry, hemoptysis, pleuritic pain, sputum, wheezing, other Cardiovascular: denies: chest pain, palpitations, orthopnea, paroxysmal noc. dyspnea, edema, light headedness, other Gastrointestinal: denies: nausea, vomiting, abdominal pain, diarrhea, constipation, melena, hematochezia, other Genitourinary: denies: dysuria, frequency, incontinence, hematuria, retention, other Musculoskeletal: denies: neck pain, shoulder pain, arm pain, back pain, hand pain, leg pain, foot pain, other - Medication Medications: Active Medications Generic Name Dose Route Start Last Admin Trade Name Freq PRN Reason Stop Dose Admin Acetaminophen 650 mg 03/24/19 21:04 03/29/19 17:08 Tylenol PO 650 mg Q4H PRN Administration Headache/Fever/Mild Pain (1-3) Albuterol/Ipratropium 3 ml 04/05/19 18:30 04/06/19 06:20 Duoneb NEB 3 ml [id number] DHARA Administration Al Hydroxide/Mg Hydroxide 60 0 ml 03/31/19 15:05 03/31/19 18:04 ml/ Diphenhydramine HCl 150 mg SSW 10 ml / Lidocaine HCl 60 ml/ PRN PRN Administration Nystatin 6,000,000 units Mouth Irritation Guaifenesin 600 mg 03/31/19 09:00 04/05/19 21:00 Mucinex PO Not Given Q12HR DHARA Cefazolin Sodium/Dextrose 2 gm 50 mls @ 200 mls/hr 04/01/19 22:00 04/06/19 05 :28 / Device IVPB 50 mls Q8HR DHARA Administration Morphine Sulfate 4 mg 03/27/19 17:21 03/30/19 12:56 Morphine SLOW IVP 4 mg Q4H PRN Administration Severe Pain (7-10) Ondansetron HCl 4 mg 03/24/19 21:04 03/26/19 18:20 Zofran Odt PO 4 mg Q6H PRN Administration Nausea/Vomiting Promethazine HCl/Codeine 5 ml 03/31/19 08:52 04/02/19 22:24 Phenergan/Codeine Syrup PO 5 ml Q4H PRN Administration Cough Silver Sulfadiazine 0 gm 03/26/19 09:00 04/05/19 09:01 Silvadene TOP 1 applic DAILY DHARA Administration Sodium Chloride 10 ml 03/24/19 21:17 04/05/19 14:40 Flush - Normal Saline IVF 10 ml PRN PRN Administration Saline Flush - Exam General Appearance: NAD, ill appearing Eye: PERRL, anicteric sclera ENT: normocephalic atraumatic, no oropharyngeal lesions Neck: supple, symmetric, no JVD Heart: RRR, no murmur, no gallops, no rubs Respiratory - other findings: air entry reduced both base Gastrointestinal: soft, non-tender, non-distended, normal bowel sounds Extremities: no cyanosis, no clubbing Extremities - other findings: chronic lymphoedema left Skin: normal turgor, no lesions Neurological: no focal deficits Musculoskeletal: normal tone, generalized weakness Psychiatric: normal affect, normal behavior Hosp A/P (1) ALPHONSE (acute kidney injury) Code(s): N17.9 - ACUTE KIDNEY FAILURE, UNSPECIFIED Status: Acute (2) Empyema Code(s): J86.9 - PYOTHORAX WITHOUT FISTULA Status: Acute (3) Sepsis Code(s): A41.9 - SEPSIS, UNSPECIFIED ORGANISM Status: Acute Qualifiers: Sepsis type: methicillin susceptible Staphylococcus aureus Acute respiratory failure type: with hypoxia Severe sepsis shock status: without septic shock (4) Metastatic breast carcinoma Code(s): C50.919 - MALIGNANT NEOPLASM OF UNSP SITE OF UNSPECIFIED FEMALE BREAST Status: Chronic - Plan old records reviewed/req, serrano catheter, continue antibiotics, PT/OT, 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
[2019-04-06] MEDS: guaiFENesin ER 600 MG TAB PO SCH ×2 (10:13→20:18)
[2019-04-06] MEDS: Megestrol Acetate 800 MG/20 ML UDCUP PO SCH ×2 (11:36→20:27)
[2019-04-06] MEDS: Silver Sulfadiazine 1% Cream 50 GM JAR TOP SCH (11:37)
--- NOTE | 2019-04-06 12:51 | PRG ---
DATE OF SERVICE: 04/06/2019 SUBJECTIVE: This morning, she is better. She is weak. Fluid is still draining out of her left chest wound. OBJECTIVE: VITAL SIGNS: Temperature 97, pulse 98, respirations 22, blood pressure 94/55. CHEST: Decreased breath sounds without any wheezing. CARDIAC: Normal S1 and S2. No gallops. ABDOMEN: No masses. LABORATORY DATA: Creatinine is 1.74. ASSESSMENT: 1. Metastatic cancer. 2. Pleural effusion. 3. Status post decortication. 4. Empyema. PLAN: Pulmonary-james, continue antibiotics as per Infectious Disease. We will try and get an x-ray baseline since she still has a lot of drainage here. We will follow. Job ID: [id number]
--- NOTE | 2019-04-06 13:15 | RAD ---
EXAM: CHEST ONE VIEW HISTORY: Pleural effusion. COMPARISON: 03/27/2019 FINDINGS: A right internal jugular vein Mediport catheter remains in place. The left-sided thoracostomy tube nelson s been removed. The pleural density seen circumferentially within the left hemithorax is again noted. Small amount of aerated lung is again seen. There is lucency present at the left lung base lik rain due to pleural gas seen on prior CT examination. Increased density medially is likely related to collapse of the left lung. Cardiac silhouette along left cardiac border is obscured. The linear an d parenchymal density in the right midlung zone is again seen. Surgical clips again overlie the left axillary region. No other interval change. IMPRESSION: 1. Interval removal of the left-sided thoracostomy tube with persistent pleural density seen circumfe rentially within the left hemithorax. Gas density seen at the left lung base is likely due to pneumothorax better seen on CT thorax. 2. Persistent linear parenchymal density right midlung zone.
[2019-04-06] MEDS: Sodium Chloride 0.9% 1,000 ML IV SCH (14:22)
--- NOTE | 2019-04-06 17:41 | ULT ---
RENAL ULTRASOUND: Date: 04-06-19 Comparison: None. History: Renal insufficiency. Evaluate for obstruction. Technique: Multiplanar grayscale sonographic imaging of the kidneys and urinary bladder obtained. FINDINGS: Detailed assessment of the kidneys is markedly limited secondary to body habitus. Right kidney is qi ntly visualized. It measures approximately 12.3 x 6.0 x 8.4 cm. Detailed assessment is suboptimal. No obvious right hydronephrosis. Urinary bladder is decompressed. Right kidney is faintly visualized measuring approximately 13.2 cm in craniocaudal dimension. No hydr onephrosis noted. IMPRESSION: Markedly limited examination. No obvious hydronephrosis. POS: OFF
[2019-04-07] MEDS: Sodium Chloride 0.9% 1,000 ML IV SCH ×3 (03:30→21:16)
[2019-04-07] MEDS: CEFAZOLIN 2 GM in Premix Bag 1 BAG IVPB SCH ×2 (06:12→17:53)
--- NOTE | 2019-04-07 08:38 | CON ---
DATE OF CONSULTATION: 04/06/2019 CONSULTING PHYSICIAN: Dr. Huerta. REASON FOR CONSULT: Acute kidney injury. REASON FOR ADMISSION: Shortness of breath. HISTORY OF PRESENT ILLNESS: A 59-year-old female with history of breast cancer and hypertension, came to the hospital with shortness of breath and evaluated. She was in the hospital for few days and started having rising creatinine. Her creatinine is 1.7. Nephrology was consulted. The patient was . The patient denies any abdominal pain, but she is not able to eat anything. In the last few days, she has been having some nausea. No fever or chills. PAST MEDICAL HISTORY: Positive for hypertension and breast cancer. PAST SURGICAL HISTORY: Knee surgery, mastectomy, and uterine ablation. HOME MEDICATIONS: Reviewed. ALLERGIES: TO ADHESIVE, AZITHROMYCIN, PENICILLIN, AND SULFA. SOCIAL HISTORY: No smoking, alcohol, or drugs. FAMILY HISTORY: Noncontributory. REVIEW OF SYSTEMS: CONSTITUTIONAL: Negative for weight loss or gain, ability to conduct usual activities. SKIN: Negative for rash, itching. EYES: Negative for double vision, pain. ENT/MOUTH: Negative for nose bleeding, neck stiffness, pain, tenderness. CARDIOVASCULAR: Negative for palpitations, dyspnea on exertion, orthopnea. RESPIRATORY: Negative for shortness of breath, wheezing, cough, hemoptysis, fever or night sweats. GASTROINTESTINAL: Negative for poor appetite, abdominal pain, heartburn, nausea, vomiting, constipation, or diarrhea. GENITOURINARY: Negative for urgency, frequency, dysuria, nocturia. MUSCULOSKELETAL: Negative for pain, swelling. NEUROLOGIC/PSYCHIATRIC: Negative for anxiety, depression. ALLERGY/IMMUNOLOGIC: Negative for skin rash, bleeding tendency. Rest all negative PHYSICAL EXAMINATION: GENERAL: This is a well-built female, in no apparent distress. VITAL SIGNS: Temperature 97.8, pulse 91, respiratory rate 18, and blood pressure 94/55. HEENT: Atraumatic and normocephalic. Oral mucosa is moist. NECK: Supple. CVS: S1 and S2 heard. Regular rate and rhythm. RESPIRATORY: Clear to auscultation. GI: Abdomen is soft. MUSCULOSKELETAL: 1+ edema. DERMATOLOGIC: No skin rash. NEUROLOGIC: Alert and awake. PSYCHIATRIC: Normal mood and affect. LABORATORY DATA: Hemoglobin is 9.4. Potassium is 4.0, BUN is 49, and creatinine is 1.7. ASSESSMENT AND PLAN: 1. Acute kidney injury, most likely from volume depletion. Agree with hydration for now. We will check renal ultrasound. 2. Edema, more cautiously monitored anemia of chronic disease. 3. History of hypertension, stable. 4. Hypoalbuminemia with moderate protein-energy malnutrition. Plan is to be on IV fluids. We will check renal ultrasound. Avoid nephrotoxins. Continue supportive care including antibiotics and we will follow. Renally dose the medications. Thank you for the consult. Job ID: [id number]
--- NOTE | 2019-04-07 10:55 | PRG ---
DATE OF SERVICE: 04/07/2019 SUBJECTIVE: This morning, she says she is feeling better. OBJECTIVE: VITAL SIGNS: Saturations are 94% on 3 L, respiratory rate 24, temperature 97, and blood pressure 160/68. CHEST: No wheezing. Decreased breath sounds in left lung. CARDIAC: Normal S1, S2. No gallops. IMPRESSION: Status post decortication, empyema, Staph on IV Keflex, breast cancer, morbid obesity. PLAN: Continue PT, supportive care. Disposition as per primary care physician. Job ID: [id number]
--- NOTE | 2019-04-07 11:47 | PRG ---
DATE OF SERVICE: 04/07/2019 SUBJECTIVE: A 59-year-old female, being seen for acute kidney injury. The patient denies any nausea, vomiting, or chest pain. OBJECTIVE: GENERAL: The patient is awake and alert. VITAL SIGNS: Afebrile, pulse 94, breathing 16, and blood pressure 116/68. GENERAL APPEARANCE AND MENTAL STATUS: Fair. HEAD/NECK: Normocephalic. Atraumatic. EYES: EOMI. No deformity. EARS: Clear. No ulcers. NOSE: Intact. No lesions. MOUTH: Clear. No discharge. THROAT: Clear. No exudate. LUNGS: Clear. No crackles. CARDIAC: S1, S2. No rub. ABDOMEN: Benign. Bowel sounds positive. GENITALIA/RECTUM: Temple absent. BACK/EXTREMITIES: Edema 0+. NEUROLOGICAL: Alert and motor intact. SKIN: LYMPHATICS: LABORATORY DATA: Reviewed. ASSESSMENT AND PLAN: 1. Acute kidney injury with chronic kidney disease, most likely due to acute tubular necrosis. No indication for dialysis. 2. Hypertension, stable. 3. Anemia, stable. Continue gentle hydration. Job ID: [id number]
[2019-04-07] MEDS: Megestrol Acetate 800 MG/20 ML UDCUP PO SCH ×2 (12:26→21:14)
[2019-04-07] MEDS: guaiFENesin ER 600 MG TAB PO SCH ×2 (12:26→20:05)
--- NOTE | 2019-04-07 15:06 | PDOC.HOSPP ---
- Subjective Encounter Date: 04/07/19 Encounter Time: 15:04 Subjective: Ms. Noble was seen today in follow-up of malignant pleural effusion. She notes dry mouth, and poor appetite. She also feels tired after participating in PT. - Objective Vital Signs & Weight: Vital Signs (12 hours) Temp Pulse Resp BP Pulse Ox 04/07/19 14:22 94 24 H 94 L 04/07/19 11:27 99 22 H 94 L 04/07/19 08:06 86 24 H 94 L 04/07/19 07:56 97.8 F 94 20 116/68 94 L Weight Admit Weight 255 lb Weight 255 lb I&O: 04/06/19 04/07/19 04/08/19 06:59 06:59 06:59 Intake Total 240 480 Output Total 375 375 Balance -135 105 Result Diagrams: 04/06/19 07:30 04/06/19 07:30 Hospitalist ROS - Medication Medications: Active Medications Generic Name Dose Route Start Last Admin Trade Name Freq PRN Reason Stop Dose Admin Acetaminophen 650 mg 03/24/19 21:04 03/29/19 17:08 Tylenol PO 650 mg Q4H PRN Administration Headache/Fever/Mild Pain (1-3) Albuterol/Ipratropium 3 ml 04/05/19 18:30 04/07/19 14:22 Duoneb NEB 3 ml [id number] DHARA Administration Al Hydroxide/Mg Hydroxide 60 0 ml 03/31/19 15:05 03/31/19 18:04 ml/ Diphenhydramine HCl 150 mg SSW 10 ml / Lidocaine HCl 60 ml/ PRN PRN Administration Nystatin 6,000,000 units Mouth Irritation Guaifenesin 600 mg 03/31/19 09:00 04/07/19 12:26 Mucinex PO Not Given Q12HR DHARA Sodium Chloride 1,000 mls @ 75 mls/hr 04/06/19 09:45 04/07/19 03:30 Normal Saline 0.9% IV 1,000 mls .[id number] DHARA Administration Cefazolin Sodium/Dextrose 2 gm 50 mls @ 200 mls/hr 04/06/19 18:00 04/07/19 06 :12 / Device IVPB 50 mls 0600,1800 DHARA Administration Megestrol Acetate 40 mg 04/06/19 09:00 04/07/19 12:26 Megace PO 40 mg BID DHARA Administration Morphine Sulfate 4 mg 03/27/19 17:21 03/30/19 12:56 Morphine SLOW IVP 4 mg Q4H PRN Administration Severe Pain (7-10) Ondansetron HCl 4 mg 03/24/19 21:04 03/26/19 18:20 Zofran Odt PO 4 mg Q6H PRN Administration Nausea/Vomiting Promethazine HCl/Codeine 5 ml 03/31/19 08:52 04/02/19 22:24 Phenergan/Codeine Syrup PO 5 ml Q4H PRN Administration Cough Silver Sulfadiazine 0 gm 03/26/19 09:00 04/06/19 11:37 Silvadene TOP 1 applic DAILY DHARA Administration Sodium Chloride 10 ml 03/24/19 21:17 04/05/19 14:40 Flush - Normal Saline IVF 10 ml PRN PRN Administration Saline Flush - Exam Eye: PERRL, anicteric sclera Heart: RRR, no murmur, no gallops, no rubs, normal peripheral pulses Respiratory: CTAB, no wheezes, no rales, no ronchi, normal chest expansion, no tachypnea, normal percussion Gastrointestinal: soft, non-tender, non-distended, normal bowel sounds, no palpable masses, no hepatomegaly, no splenomegaly, no bruit Extremities: 2+ LE edema (upper extremity edema, good radial and ulnar pulses) Hosp A/P (1) Malignant pleural effusion Code(s): J91.0 - MALIGNANT PLEURAL EFFUSION Status: Acute (2) Physical deconditioning Code(s): R53.81 - OTHER MALAISE Status: Acute (3) ALPHONSE (acute kidney injury) Code(s): N17.9 - ACUTE KIDNEY FAILURE, UNSPECIFIED Status: Acute (4) Metastatic breast carcinoma Code(s): C50.919 - MALIGNANT NEOPLASM OF UNSP SITE OF UNSPECIFIED FEMALE BREAST Status: Chronic - Plan * Malignant Pleural effusion- she is clinically better after thorocentesis * Will add PPN due to poor oral intake * ALPHONSE- due to ATN- continue to encourage oral intake. * HTN- blood pressure is stable * Severe deconditioning- continue PT/OT * Awaiting placement
[2019-04-07] MEDS ORDERED: D5W-AA 4.25% with LYTES 1,000 ML BAG IV SCH (16:00)
[2019-04-07] MEDS: Ibuprofen 100 MG/5 ML UDCUP PO SCH ×2 (17:47→22:48)
[2019-04-07] MEDS: Silver Sulfadiazine 1% Cream 50 GM JAR TOP SCH (19:57)
[2019-04-07] MEDS: Morphine 4 MG/ML VIAL SLOW IVP PRN (22:47)
[2019-04-08] MEDS: CEFAZOLIN 2 GM in Premix Bag 1 BAG IVPB SCH ×2 (06:03→17:50)
[2019-04-08] MEDS: Ibuprofen 100 MG/5 ML UDCUP PO SCH ×2 (06:03→14:23)
[2019-04-08] MEDS: guaiFENesin ER 600 MG TAB PO SCH ×2 (09:17→20:09)
[2019-04-08] MEDS: Megestrol Acetate 800 MG/20 ML UDCUP PO SCH ×2 (09:18→20:09)
[2019-04-08] MEDS: Silver Sulfadiazine 1% Cream 50 GM JAR TOP SCH (09:18)
[2019-04-08] MEDS: Sodium Chloride 0.9% 1,000 ML IV SCH (10:05)
[2019-04-08 10:29] LABS: Anion Gap 15 mmol/L (10-20); BUN (Urea Nitrogen) 59 mg/dL (9.8-20.1); Calc. Creatinine Clearance 57 mL/min (70-130); Calcium 8.1 mg/dL (7.8-10.44); Carbon Dioxide 16 mmol/L (22-29); Chloride 114 mmol/L (98-107); Estimated GFR-MDRD 26; Glucose 108 mg/dL (70-105); Potassium 4.5 mmol/L (3.5-5.1); Sodium 140 mmol/L (136-145)
--- NOTE | 2019-04-08 10:29 | PRG ---
DATE OF SERVICE: 04/08/2019 SUBJECTIVE: This morning, the patient is awake, alert, responsive. OBJECTIVE: VITAL SIGNS: Pulse 79, respirations 18, sats 97% on 3 L, blood pressure 130/80. CHEST: Decreased breath sounds. No wheezing. CARDIAC: Normal S1, S2. No gallops. ABDOMEN: No masses. ASSESSMENT: 1. Metastatic breast cancer. 2. Pleural effusion. 3. Decortication. 4. Empyema. 5. Trapped lung. 6. Morbid obesity. 7. Severe deconditioning. PLAN: Continue aggressive PT. Disposition as per primary care physician. She is on antibiotics by Infectious Disease. Job ID: [id number]
[2019-04-08 10:37] LABS: Anion Gap 15 mmol/L (10-20); BUN (Urea Nitrogen) 57 mg/dL (9.8-20.1); Calc. Creatinine Clearance 58 mL/min (70-130); Calcium 8.1 mg/dL (7.8-10.44); Carbon Dioxide 16 mmol/L (22-29); Chloride 112 mmol/L (98-107); Estimated GFR-MDRD 27; Glucose 104 mg/dL (70-105); Potassium 3.9 mmol/L (3.5-5.1); Sodium 139 mmol/L (136-145)
[2019-04-08 10:40] LABS: Hemoglobin 9.5 g/dL (12.0-16.0); Mean Corpuscular HGB CONC 31.3 g/dL (32.0-36.0); Mean Corpuscular Hemoglobin 24.6 pg (27.0-31.0); Mean Corpuscular Volume 78.8 fL (78.0-98.0); Mean Platelet Volume 7.8 fL (7.4-10.4); Platelet Count 340 thou/uL (130-400); RBC Distribution Width 20.9 % (11.5-14.5); Red Blood Cell (RBC) Count 3.85 mill/uL (4.20-5.40); White Blood Cell (WBC) Count 6.5 thou/uL (4.8-10.8)
[2019-04-08 11:11] LABS: Band 8 % (5-11); Eosinophils 7 % (0-10); Hypochromia SLIGHT = 6-15 cells (100X) (0-5/hpf); Lymphocytes 14 % (21-51); MDiff Complete? YES; Microcytosis SLIGHT = 6-15 cells (100X) (0-5/hpf); Monocytes 8 % (0-10); Myelocyte 1 % (0-0); Neutrophil 60 % (42-75); Ovalocytes SLIGHT = 2-5 cells (100X) (0-1/hpf); Platelet Morphology Comment Appears Adequate; Polychromasia SLIGHT = 2-3 cells (100X) (0-2/hpf)
[2019-04-08] MEDS ORDERED: D5W-AA 4.25% with LYTES 1,000 ML BAG IV SCH (12:00)
--- NOTE | 2019-04-08 15:35 | PRG ---
DATE OF SERVICE: 04/08/2019 SUBJECTIVE: A 59-year-old female being seen for acute kidney injury. The patient denied any nausea, vomiting, or chest pain. OBJECTIVE: GENERAL: The patient is awake and alert. VITAL SIGNS: Pulse 90, breathing 16, and blood pressure 106/60. GENERAL APPEARANCE AND MENTAL STATUS: Fair. HEAD/NECK: Normocephalic. Atraumatic. EYES: EOMI. No deformity. EARS: Clear. No ulcers. NOSE: Intact. No lesions. MOUTH: Clear. No discharge. THROAT: Clear. No exudate. LUNGS: Clear. No crackles. CARDIAC: S1, S2. No rub. ABDOMEN: Benign. Bowel sounds positive. GENITALIA/RECTUM: Temple absent. BACK/EXTREMITIES: Edema 0+. NEUROLOGICAL: Alert and motor intact. SKIN: LYMPHATICS: LABORATORY DATA: Creatinine is 1.9. Potassium is 4.5. ASSESSMENT AND PLAN: 1. Acute kidney injury, chronic kidney disease due to acute tubular necrosis, multifactorial. Continue gentle hydration. 2. Hypertension, stable. 3. Anemia, stable. 4. Metabolic acidosis due to renal failure. Overall prognosis is poor. No indication for dialysis. Job ID: [id number]
[2019-04-08] MEDS ORDERED: SODIUM CHLORIDE IV SCH (17:00)
[2019-04-08] MEDS ORDERED: POTASSIUM PHOSPHATE IV SCH (17:00)
[2019-04-08] MEDS ORDERED: POTASSIUM CHLORIDE IV SCH (17:00)
[2019-04-08] MEDS ORDERED: [UNRECOGNIZED DRUG - OTHER] IV SCH (17:00)
--- NOTE | 2019-04-08 17:10 | PDOC.HOSPP ---
- Subjective Encounter Date: 04/08/19 Encounter Time: 11:35 Subjective: Ms. Noble was seen today in follow-up of malignant pleural effusion. She continues to have a poor appetite. She also continues to be extremely tired and weak. - Objective Vital Signs & Weight: Vital Signs (12 hours) Temp Pulse Resp BP Pulse Ox 04/08/19 14:49 98 20 96 04/08/19 10:46 90 24 H 97 04/08/19 09:28 98.0 F 94 18 106/60 92 L 04/08/19 08:00 92 L 04/08/19 07:43 89 18 97 Weight Admit Weight 255 lb Weight 255 lb I&O: 04/07/19 04/08/19 04/09/19 06:59 06:59 06:59 Intake Total 480 1990 Output Total 375 425 Balance 105 1565 Result Diagrams: 04/08/19 10:03 04/08/19 10:03 Hospitalist ROS - Medication Medications: Active Medications Generic Name Dose Route Start Last Admin Trade Name Freq PRN Reason Stop Dose Admin Acetaminophen 650 mg 03/24/19 21:04 03/29/19 17:08 Tylenol PO 650 mg Q4H PRN Administration Headache/Fever/Mild Pain (1-3) Albuterol/Ipratropium 3 ml 04/05/19 18:30 04/08/19 14:49 Duoneb NEB 3 ml [id number] DHARA Administration Al Hydroxide/Mg Hydroxide 60 0 ml 03/31/19 15:05 03/31/19 18:04 ml/ Diphenhydramine HCl 150 mg SSW 10 ml / Lidocaine HCl 60 ml/ PRN PRN Administration Nystatin 6,000,000 units Mouth Irritation Guaifenesin 600 mg 03/31/19 09:00 04/08/19 09:17 Mucinex PO Not Given Q12HR DHARA Sodium Chloride 1,000 mls @ 75 mls/hr 04/06/19 09:45 04/07/19 21:16 Normal Saline 0.9% IV 1,000 mls .[id number] DHARA Administration Cefazolin Sodium/Dextrose 2 gm 50 mls @ 200 mls/hr 04/06/19 18:00 04/08/19 06 :03 / Device IVPB 50 mls 0600,1800 DHARA Administration Ibuprofen 400 mg 04/07/19 22:00 04/08/19 06:03 Motrin PO Not Given Q8HR DHARA Megestrol Acetate 40 mg 04/06/19 09:00 04/08/19 09:18 Megace PO 40 mg BID DHARA Administration Morphine Sulfate 4 mg 03/27/19 17:21 04/07/19 22:47 Morphine SLOW IVP 4 mg Q4H PRN Administration Severe Pain (7-10) Ondansetron HCl 4 mg 03/24/19 21:04 03/26/19 18:20 Zofran Odt PO 4 mg Q6H PRN Administration Nausea/Vomiting Promethazine HCl/Codeine 5 ml 03/31/19 08:52 04/02/19 22:24 Phenergan/Codeine Syrup PO 5 ml Q4H PRN Administration Cough Silver Sulfadiazine 0 gm 03/26/19 09:00 04/08/19 09:18 Silvadene TOP 1 applic DAILY DHARA Administration Sodium Chloride 10 ml 03/24/19 21:17 04/05/19 14:40 Flush - Normal Saline IVF 10 ml PRN PRN Administration Saline Flush - Exam Eye: PERRL, anicteric sclera Heart: RRR, no murmur, no gallops, no rubs, normal peripheral pulses Respiratory: CTAB, no wheezes, no rales, no ronchi, normal chest expansion, no tachypnea, normal percussion Gastrointestinal: soft, non-tender, non-distended, normal bowel sounds, no palpable masses, no hepatomegaly Extremities: 2+ LE edema (edema in both upper and lower extremities) Hosp A/P (1) Malignant pleural effusion Code(s): J91.0 - MALIGNANT PLEURAL EFFUSION Status: Acute (2) Physical deconditioning Code(s): R53.81 - OTHER MALAISE Status: Acute (3) ALPHONSE (acute kidney injury) Code(s): N17.9 - ACUTE KIDNEY FAILURE, UNSPECIFIED Status: Acute (4) Metastatic breast carcinoma Code(s): C50.919 - MALIGNANT NEOPLASM OF UNSP SITE OF UNSPECIFIED FEMALE BREAST Status: Chronic - Plan * Malignant Pleural effusion- stable * Poor oral intake- continue PPN * ALPHONSE- due to ATN- continue to encourage oral intake. * HTN- blood pressure is low normal * Severe deconditioning- continue PT/OT * Awaiting placement- a referral has been sent to [facility]
[2019-04-08] MEDS ORDERED: Ibuprofen 100 MG/5 ML UDCUP PO PRN (18:22)
[2019-04-09] MEDS: Sodium Chloride 0.9% 1,000 ML IV SCH ×2 (02:00→18:51)
[2019-04-09] MEDS: CEFAZOLIN 2 GM in Premix Bag 1 BAG IVPB SCH ×2 (05:51→18:53)
[2019-04-09] MEDS: Silver Sulfadiazine 1% Cream 50 GM JAR TOP SCH (09:00)
[2019-04-09] MEDS: Morphine 4 MG/ML VIAL SLOW IVP PRN ×3 (09:18→20:37)
[2019-04-09] MEDS: guaiFENesin ER 600 MG TAB PO SCH (09:21)
[2019-04-09] MEDS: Megestrol Acetate 800 MG/20 ML UDCUP PO SCH (09:21)
--- NOTE | 2019-04-09 10:32 | PRG ---
DATE OF SERVICE: 04/09/2019 SUBJECTIVE: This morning, the patient is awake, alert, significant pain, severe shortness of breath. Had a rough night. OBJECTIVE: VITAL SIGNS: Temperature 97, pulse 98, respiratory rate 20, saturations 93% on 3 L, blood pressure 120/76. CHEST: Anterior rhonchi. CARDIAC: Normal S1, S2. No gallops. ABDOMEN: No masses. LABORATORY DATA: Creatinine 1.9. ASSESSMENT AND PLAN: Empyema, left chest; pleural effusion, metastatic breast cancer, azotemia. The patient is going off for comfort care measures. Pulmonary will follow at a distance. Please call, if needed. Job ID: [id number]
[2019-04-09 12:52] VITALS: BP 126/75; TEMP 97.8
--- NOTE | 2019-04-09 16:25 | PDOC.HOSPP ---
- Subjective Encounter Date: 04/09/19 Encounter Time: 16:23 Subjective: Ms. Noble was seen today in follow-up of malignant pleural effusion. She has made the decision to stop aggressive treatment, and would like to be placed on Hospice. - Objective Vital Signs & Weight: Vital Signs (12 hours) Temp Pulse Resp BP Pulse Ox 04/09/19 12:00 97.8 F 97 18 126/75 97 04/09/19 08:00 97.3 F L 98 20 128/76 93 L Weight Admit Weight 255 lb Weight 255 lb I&O: 04/08/19 04/09/19 04/10/19 06:59 06:59 06:59 Intake Total 1989 3580 Output Total 425 350 Balance 1565 3230 Result Diagrams: 04/08/19 10:03 04/08/19 10:03 Hospitalist ROS - Medication Medications: Active Medications Generic Name Dose Route Start Last Admin Trade Name Freq PRN Reason Stop Dose Admin Acetaminophen 650 mg 03/24/19 21:04 03/29/19 17:08 Tylenol PO 650 mg Q4H PRN Administration Headache/Fever/Mild Pain (1-3) Albuterol/Ipratropium 3 ml 04/05/19 18:30 04/09/19 12:44 Duoneb NEB Not Given [id number] DHARA Al Hydroxide/Mg Hydroxide 60 0 ml 03/31/19 15:05 03/31/19 18:04 ml/ Diphenhydramine HCl 150 mg SSW 10 ml / Lidocaine HCl 60 ml/ PRN PRN Administration Nystatin 6,000,000 units Mouth Irritation Guaifenesin 600 mg 03/31/19 09:00 04/09/19 09:21 Mucinex PO Not Given Q12HR DHARA Sodium Chloride 1,000 mls @ 75 mls/hr 04/06/19 09:45 04/09/19 02:00 Normal Saline 0.9% IV 1,000 mls .[id number] DHARA Administration Cefazolin Sodium/Dextrose 2 gm 50 mls @ 200 mls/hr 04/06/19 18:00 04/09/19 05 :51 / Device IVPB 50 mls 0600,1800 DHARA Administration Sodium Chloride 35 meq/ 1,029.7641 mls @ 75 mls/hr 04/08/19 17:00 04/08/19 20 :09 Potassium Chloride 10 meq/ IV 1,029.7641 mls Potassium Phosphate 15 mmol/ .Q14H DHARA Administration Calcium Gluconate 4.5 meq/ Magnesium Sulfate 5 meq/ Dextrose/Water/ Sterile Water/ Amino Acids Megestrol Acetate 40 mg 04/06/19 09:00 04/09/19 09:21 Megace PO Not Given BID DHARA Morphine Sulfate 4 mg 03/27/19 17:21 04/09/19 13:42 Morphine SLOW IVP 4 mg Q4H PRN Administration Severe Pain (7-10) Ondansetron HCl 4 mg 03/24/19 21:04 03/26/19 18:20 Zofran Odt PO 4 mg Q6H PRN Administration Nausea/Vomiting Promethazine HCl/Codeine 5 ml 03/31/19 08:52 04/02/19 22:24 Phenergan/Codeine Syrup PO 5 ml Q4H PRN Administration Cough Silver Sulfadiazine 0 gm 03/26/19 09:00 04/08/19 09:18 Silvadene TOP 1 applic DAILY DHARA Administration Sodium Chloride 10 ml 03/24/19 21:17 04/05/19 14:40 Flush - Normal Saline IVF 10 ml PRN PRN Administration Saline Flush - Exam Eye: PERRL, anicteric sclera Heart: RRR, no murmur, no gallops, no rubs, normal peripheral pulses Respiratory: CTAB, no wheezes, no rales, no ronchi, normal chest expansion, no tachypnea, normal percussion Gastrointestinal: soft, non-tender, non-distended, normal bowel sounds, no palpable masses, no hepatomegaly, no splenomegaly Extremities: 2+ LE edema (Bilateral upper and lower extremity edema) Neurological: no new deficit Hosp A/P (1) Malignant pleural effusion Code(s): J91.0 - MALIGNANT PLEURAL EFFUSION Status: Acute (2) Physical deconditioning Code(s): R53.81 - OTHER MALAISE Status: Acute (3) ALPHONSE (acute kidney injury) Code(s): N17.9 - ACUTE KIDNEY FAILURE, UNSPECIFIED Status: Acute (4) Metastatic breast carcinoma Code(s): C50.919 - MALIGNANT NEOPLASM OF UNSP SITE OF UNSPECIFIED FEMALE BREAST Status: Chronic - Plan * Malignant Pleural effusion due to advanced breast cancer. * She has decided to transition to Hospice care * She has been accepted [facility]
--- NOTE | 2019-04-10 01:38 | DIS ---
DATE OF ADMISSION: 03/24/2019 DATE OF DISCHARGE: 04/09/2019 PRIMARY CARE PHYSICIAN: Dr. Sujey Guzman. DISCHARGE DISPOSITION: Inpatient hospice with [facility]. DISCHARGE DIAGNOSES: 1. 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 2. Metastatic breast cancer. 3. Hypertension. DISCHARGE MEDICATIONS: Will be determined by the inpatient hospice. CODE STATUS: DNAR. ALLERGIES: TO ADHESIVES, AZITHROMYCIN, PENICILLIN, AND SULFA. IMAGING: During her hospital stay, she had a CT angiogram of the chest which showed an interval increased volume and a very large pleural effusion. There is almost total atelectasis and collapse of the entire left lung. Interval development of multiple soft tissue densities in the anterior chest wall. The patient also had left-sided pleural drainage with a catheter insertion. The patient also had a repeat CT scan of the chest showing interval development of a large bore chest tube and there was evidence of hydropneumothorax and collapse of the left upper lung. The patient had a renal ultrasound showing markedly limited examination, but no evidence of hydronephrosis. HOSPITAL COURSE: Ms. Noble is a 59-year-old female, who was admitted to the hospital after having difficulty breathing. She was found to have a large left pleural effusion. She was admitted and evaluated by Pulmonology. She underwent thoracentesis with removal of approximately 600 mL of pleural fluid. This was sent for pathology and it was found to be a malignant pleural effusion. She did have reaccumulation of the fluid and had to have chest tube drainage of the fluid. She was eventually transitioned to the [facility]. During this time, she was extremely debilitated and efforts were made to increase her mobility as well as try to increase her oral intake. During this time, unfortunately, she developed acute kidney injury. This was thought to be related to the poor oral intake and also due to acute tubular necrosis. Nephrology was consulted. She had a renal ultrasound, which did not show any evidence of hydronephrosis. Efforts were made to increase her oral intake. However, the patient continued to have very poor appetite. After a long stay in the hospital, the patient made the decision to stop aggressive care and to pursue hospice treatment. On 04/09/2019, she was transitioned to [facility]. Job ID: [id number]
== END 2019-04-09 21:08 | disposition hospice, inpatient (51) | DRG 853 ==
LOC: ERS 17:04 → ONC 21:20
PROVIDERS: ADMIT Hospitalist; ATTEND Hospitalist
PROC: BB4BZZZ Ultrasonography of Pleura (ICD-10-PCS; 2019-03-25)
PROC: 0W9B30Z Drainage of Left Pleural Cavity with Drainage Device, Percutaneous Approach (ICD-10-PCS; 2019-03-25)
PROC: 0BJQ4ZZ Inspection of Pleura, Percutaneous Endoscopic Approach (ICD-10-PCS; principal; 2019-03-27)
DX: A41.9 Sepsis, unspecified organism (principal); J96.21 Acute and chronic respiratory failure with hypoxia; N17.0 Acute kidney failure with tubular necrosis; J18.9 Pneumonia, unspecified organism; J86.9 Pyothorax without fistula; J91.0 Malignant pleural effusion; L02.213 Cutaneous abscess of chest wall; J94.8 Other specified pleural conditions; E44.0 Moderate protein-calorie malnutrition; E87.2 Acidosis; Z51.5 Encounter for palliative care; C50.919 Malignant neoplasm of unspecified site of unspecified female breast; I10 Essential (primary) hypertension; D64.81 Anemia due to antineoplastic chemotherapy; B95.61 Methicillin susceptible Staphylococcus aureus infection as the cause of diseases classified elsewhere; T45.1X5A Adverse effect of antineoplastic and immunosuppressive drugs, initial encounter; D47.3 Essential (hemorrhagic) thrombocythemia; E66.01 Morbid (severe) obesity due to excess calories; Z88.1 Allergy status to other antibiotic agents; Z88.0 Allergy status to penicillin; Z88.2 Allergy status to sulfonamides; Z88.8 Allergy status to other drugs, medicaments and biological substances; Z90.11 Acquired absence of right breast and nipple; Z68.38 Body mass index [BMI] 38.0-38.9, adult
CPT/HCPCS: 36415; 51701; 71045; 71260; 71275; 76770; 80048; 80053; 80202; 81003; 81015; 82550; 82945; 83605; 83615; 83690; 83735; 83880; 84100; 84134; 84157; 84484; 85025; 85060; 85379; 85610; 85730; 86140; 86850; 86900; 86901; 87040; 87070; 87077; 87116; 87149; 87186; 87205; 87206; 88112; 88305; 89051; 93005; 94640; 94760; 96361; 96365; 96375; A4217; A4353; J0670; J0690; J0692; J1642; J1940; J2001; J2250; J2270; J2405; J2704; J3010; J3370; J3475; J3480; J3490; J7050; J7620; Q0162; Q0163; Q9966; S0179